=== PATIENT | male | born 1940 | race Caucasian/White ===

== ENCOUNTER → 2018-11-27 08:41 | Outpatient (CLI) | payer MEDICARE, OTHER, SELFPAY ==
--- NOTE | 2018-11-27 | DI.MRI.S_ITS ---
PROCEDURE: MR LUMBAR SPINE WO CON INDICATIONS: LOW BACK PAIN/SPINAL STENOSIS TECHNIQUE: Noncontrast sagittal T1 spin echo and T2 fast echo, sagittal STIR, axial T1 and T2 fast spin echo through the lumbar spine. In cases with scoliosis, additional coronal T2 fast spin echo may be performed. COMPARISON: None. FINDINGS: Image quality: Excellent. Alignment and Curvature: No plain films are available for comparison, for numbering purposes. Thus, for the purposes of this examination, 5 lumbar type vertebral bodies will be presumed, as denoted on the montage panel. This should be confirmed and correlated with plain films, prior to any lumbar spinal intervention. There is mild, grade 1 anterolisthesis of L4 on L5 and L5 on S1. Bone Marrow: Marrow is of normal overall signal. No acute vertebral body compression fractures. Mild reactive signal within the endplates adjacent to the L2-L3, L3-L4, L4-L5, and L5-S1 intervertebral discs. Spinal Cord: Conus medullaris terminates at the L1-L2 disc space level. Visualized cord demonstrates normal signal and size. Paraspinous Soft Tissues: No paravertebral masses. T11-T12: Moderate disc height loss and desiccation. Mild diffuse disc bulge. Mild canal stenosis. No foraminal stenosis. T12-L1: Mild disc height loss and desiccation. Mild diffuse disc bulge with superimposed right paracentral protrusion. Mild bilateral facet hypertrophy. Mild canal stenosis. No foraminal stenosis. L1-L2: Moderate disc desiccation. Mild disc height loss. Mild diffuse disc bulge. Mild bilateral facet and ligamentum flavum hypertrophy. Mild canal stenosis. No foraminal stenosis. L2-L3: Mild diffuse disc bulge with superimposed left posterolateral protrusion. Mild facet and ligamentum flavum hypertrophy. Mild epidural lipomatosis. Mild canal stenosis. Mild left foraminal stenosis. No right foraminal stenosis. L3-L4: Moderate disc height loss and desiccation. Mild diffuse disc bulge with superimposed small broad-based left posterolateral protrusion. Mild facet and ligamentum flavum hypertrophy. Mild canal stenosis. Mild foraminal stenosis bilaterally. L4-L5: Moderate disc height loss and desiccation. Mild diffuse disc bulge. Moderate facet hypertrophy. Mild ligamentum flavum hypertrophy. Moderate canal stenosis. Mild foraminal stenosis bilaterally. L5-S1: Moderate disc height loss and desiccation. Mild diffuse disc bulge. Mild facet hypertrophy bilaterally. Mild canal stenosis. Moderate subarticular foraminal stenosis bilaterally. IMPRESSION: 1. Multilevel degenerative disc and facet disease, as well as ligamentum flavum hypertrophy and epidural lipomatosis. 2. 5 lumbar type vertebral bodies were presumed for the current report. Plain films of the lumbar spine are recommended for confirmation, prior to any lumbar spinal intervention. 3. Multilevel canal stenoses, worst at L4-L5 where there is moderate canal stenosis present. 4. Multilevel foraminal stenoses, worst at L5-S1 bilaterally where there are moderate subarticular foraminal stenoses present. Dictated by: Saurabh Camargo M.D. on 11/27/2018 at 9:36 Approved by: Saurabh Camargo M.D. on 11/27/2018 at 9:44
== END ==
PROVIDERS: PCP Internal Medicine; Visit Provider Internal Medicine
DX: M51.36 Other intervertebral disc degeneration, lumbar region (principal); M51.37 Other intervertebral disc degeneration, lumbosacral region; M48.061 Spinal stenosis, lumbar region without neurogenic claudication; M48.07 Spinal stenosis, lumbosacral region; M54.5 Low back pain; E88.2 Lipomatosis, not elsewhere classified
CPT/HCPCS: 72148

== ENCOUNTER 2019-02-09 14:08 | Inpatient (IN) | payer MEDICARE, OTHER, SELFPAY ==
[2019-02-09] VITALS (10 sets, daily range): BP systolic 96–152; BP diastolic 72–94; PULSE 67–80; RESP 14–18; TEMP 36.2–37; O2SAT 93–98; BMI 32.4; BMI 30.9
--- NOTE | 2019-02-09 | DI.ECHO.S_ITS ---
[facility]---------+ [facility] +---------+ : : [address] : : : : [id number] : : : : Phone: [phone] Echocardiogram Report + + :Name: GONZALO BRAUN Study Date: 02/10/2019 Height: 67 in : :[facility] Weight: 207 lb : : Gender: Male BSA: 2.1 m2 : :: 1940 Age: 78 yrs BP: 136/93 mmHg: :Reason For Study: CHF : :Ordering Physician: Dr. Youssef : :Tianna Performed By: Susanne Pisano : :Referring: MONALISA CALDERÓN : + + Interpretation Summary The study quality was technically difficult. Left ventricular systolic function is severely reduced. The ejection fraction is estimated to be 25-30%. There is moderate to severe global hypokinesis of the left ventricle. There is severe hypokinesis of the basal to mid inferior wall. Diastolic parameters suggest a pseudonormalization pattern, consistent with probable elevated filling pressures. The right ventricle is mildly dilated. The right ventricular systolic pressure is estimated to be at least 54 mmHg based on an estimated right atrial pressure of 8 mm Hg. The left atrium is severely dilated. There is mild to moderate mitral regurgitation. -Overall this echo shows a moderately reduced LV systolic function with increased filling pressures. There is global hypokinesis. The wall motion is worse in the inferior wall, indicating coronary artery disease. -No prior echo for comparison. Procedure: A two-dimensional transthoracic echocardiogram with color flow and Doppler was performed. There is no prior echocardiogram noted for this patient. The study quality was technically difficult. The patient was in normal sinus rhythm during the exam. The patient had frequent PVCs during the exam. Left Ventricle: The left ventricle is mildly dilated. There is normal left ventricular wall thickness. Left ventricular systolic function is severely reduced. The ejection fraction is estimated to be 25-30%. There is moderate to severe global hypokinesis of the left ventricle. There is severe hypokinesis of the basal to mid inferior wall. Diastolic parameters suggest a pseudonormalization pattern, consistent with probable elevated filling pressures. Right Ventricle: The right ventricle is mildly dilated. The right ventricular systolic function is normal. Atria: The left atrium is severely dilated. The right atrium is mild to moderately dilated. There is no Doppler evidence for an interatrial shunt. Mitral Valve: The mitral valve leaflets appear mildly thickened, but open well. There is mild mitral annular calcification. There is mild to moderate mitral regurgitation. Aortic Valve: The aortic valve is trileaflet. There is mild aortic valve sclerosis. The aortic valve opens well. There is no aortic valve stenosis. There is trace aortic regurgitation. Tricuspid Valve: The tricuspid valve is normal. There is mild tricuspid regurgitation. The right ventricular systolic pressure is estimated to be at least 54 mmHg based on an estimated right atrial pressure of 8 mm Hg. Pulmonic Valve: The pulmonic valve is not well visualized. There is trace pulmonic regurgitation. Great Vessels: The aortic root is normal size. The ascending aorta is normal in size. The aortic arch could not be visualized. The pulmonary is not well visualized. The IVC is dilated (diameter is greater than 2.1 cm) yet it collapses greater than 50% with a sniff. This suggests a right atrial pressure of 8 mm Hg. Pericardium/ Pleura There is no pericardial effusion. There is a trivial right-sided pleural effusion. MMode/2D Measurements & Calculations LVIDd: 6.0 cm LVOT diam: 2.3 cm LVIDs: 5.7 cm Ao root diam: 3.4 cm FS: 4.6 % asc Aorta Diam: 3.1 cm EPSS: 2.0 cm IVSd: 0.66 cm LVPWd: 0.70 cm LV ziegler. diameter/BSA (cm/m^2): 2.9 LV sys. diameter/BSA (cm/m^2): 2.8 LA A2 area: 28.0 cm2 RA long axis: 5.0 cm LA A4 area: 27.0 cm2 RA area: 18.3 cm2 LA length (vol): 6.4 cm RA vol: 56.7 ml LA vol: 100.4 ml RA : 27.6 ml/m2 LA vol index: 48.9 ml/m2 IVC diam: 2.2 cm RVD1 (basal): 5.4 cm RVD2 (mid): 4.3 cm TAPSE: 2.7 cm Doppler Measurements & Calculations Ao V2 max: 118.4 cm/sec LVOT Max Dov: 84.6 cm/sec Ao V2 mean: 79.2 cm/sec LV V1 max P.9 mmHg Ao max P.6 mmHg LV V1 VTI: 14.8 cm Ao mean P.9 mmHg PAUL(I,D): 2.9 cm2 Ao V2 VTI: 21.5 cm PAUL(V,D): 3.0 cm2 sev ratio: 0.69 PAUL indexed to BSA (cm^2/m^2): 1.4 MV E max dov: 72.6 cm/sec TR max dov: 337.9 cm/sec MV A max dov: 53.6 cm/sec TR max P.7 mmHg MV E/A: 1.4 PA V2 max: 53.8 cm/sec Med Peak E' Dov: 2.3 cm/sec PA V2 mean: 33.9 cm/sec E/E' med: 31.3 PA mean P.54 mmHg Lat Peak E' Dov: 6.0 cm/sec PA Accel Time: 0.10 sec E/E' lat: 12.1 E/e' average: 21.7 MV dec time: 0.24 sec SV(LVOT): 61.5 ml Electronically signed by: Van Lemus M.D. on Reading Physician:02/10/2019 11:02 AM
[2019-02-09] MEDS: methylPREDNISolone 125 MG/2 ML VIAL IV (14:48)
[2019-02-09] MEDS: ALBUTEROL/IPRATROPIUM 3 ML AMPUL INH (14:52)
[2019-02-09 14:53] LABS: Add Manual Diff / Slide Review NO; Basophils Absolute Auto 0 /uL (0-100); Basophils Percent Auto 0.5 % (0-2); Eosinophils Absolute Auto 200 /uL (0-450); Eosinophils Percent Auto 2.2 % (2-4); Hematocrit 42.9 % (41-53); Hemoglobin 14.2 g/dL (13.5-17.5); Lymphocytes Absolute Auto 1600 /uL (1100-4500); Lymphocytes Percent Auto 19.2 % (25-40); Mean Corpuscular HGB Conc 33.2 % (30-36); Mean Corpuscular Hemoglobin 30.7 PG (26-34); Mean Corpuscular Volume 92.4 fL (80-100); Monocytes Absolute Auto 900 /uL (0-900); Monocytes Percent Auto 10.4 % (3-14); Neutrophils Absolute Auto 5600 /uL (1500-7000); Neutrophils Percent Auto 67.7 % (50-75); Platelet Count 160 X10^3/uL (150-400); Red Blood Cell Count 4.64 X10^6/uL (4.5-5.9); Red Cell Distribution Width 15.1 % (11.6-14.8); White Blood Cell Count 8.3 X10^3/uL (4.5-11.0)
[2019-02-09 15:04] LABS: B Type Natriuretic Peptide 1250 (<100)
[2019-02-09 15:08] LABS: Blood Urea Nitrogen 22 mg/dL (9-20); Calcium 9.1 mg/dL (8.4-10.2); Carbon Dioxide 24 mmol/L (22-32); Chloride 103 mmol/L (98-107); Creatine Kinase 49 U/L (55-170); Estimated Glomerular Filt Rate > 60.0 mL/min (>60); Glucose 105 mg/dL (80-110); Magnesium 1.6 mg/dL (1.6-2.3); Potassium 4.7 mmol/L (3.4-5.1); Sodium 138 mmol/L (137-145)
[2019-02-09 15:10] LABS: HEMOLYSIS 64 (0-50)
[2019-02-09 15:19] LABS: Troponin I 0.022 ng/mL (0.01-0.034)
[2019-02-09 15:21] LABS: Procalcitonin < 0.05 ng/mL (<0.5)
[2019-02-09] MEDS: FUROSEMIDE 40 MG/4 ML VIAL IV ×2 (15:31→21:41)
--- NOTE | 2019-02-09 15:35 | DI.RAD.S_ITS ---
PROCEDURE: XR CHEST 1V INDICATIONS: short of breath TECHNIQUE: One view of the chest was acquired. COMPARISON: None. FINDINGS: Surgical changes and devices: None. Lungs and pleura: Lungs are clear. No pleural effusions or pneumothorax. Mediastinum: Mediastinal contours appear normal. Heart size is enlarged. Bones and chest wall: No suspicious bony lesions. Overlying soft tissues appear unremarkable. IMPRESSION: No acute process. Dictated by: Saurabh Camargo M.D. on 02/09/2019 at 15:48 Approved by: Saurabh Camargo M.D. on 02/09/2019 at 15:48
--- NOTE | 2019-02-09 15:51 | ED.SOB ---
HPI - SOB/Dyspnea General Chief Complaint: Shortness of Breath/Dyspnea Stated Complaint: SOB Time Seen by Provider: 02/09/19 14:59 Source: patient Mode of arrival: ambulatory Limitations: no limitations History of Present Illness Patient is a gab 78-year-old male who presents with increasing shortness of breath with exertion ongoing for a month but worse over the last 3 days. He states that he has has had swelling in his legs he has noticed it mostly in his testicles. In fact he saw his PCP who says that his right testicle looked infected and on Cipro. He denies any chest pain no heart palpitations. He has no known history of COPD or congestive heart failure. He has not had any fever or productive cough. MD Complaint: shortness of breath Context: occurred during exertion Severity: moderate Consistency/Duration: intermittent Relieving factors: rest Treatment prior to arrival: none Related Data Home Medications Medication Instructions Recorded Confirmed B-complex with vitamin C [Super B 1 tab PO DAILY 02/09/19 02/09/19 Complex-Vitamin C] albuterol sulfate [Ventolin HFA] 2 puff INHALATION PRN PRN 02/09/19 02/09/19 aspirin 325 mg PO DAILY 02/09/19 02/09/19 carvedilol 1 tab PO BID 02/09/19 02/09/19 ciprofloxacin HCl [Cipro] 500 mg PO Q12H 02/09/19 02/09/19 finasteride 1 tab PO DAILY 02/09/19 02/09/19 furosemide 1 tab PO DAILY 02/09/19 02/09/19 glucosamine-chondroitin 2 tab PO DAILY 02/09/19 02/09/19 levothyroxine 88 mcg PO DAILY 02/09/19 02/09/19 lisinopril-hydrochlorothiazide 1 tab PO DAILY 02/09/19 02/09/19 metformin 1 tab PO BID 02/09/19 02/09/19 pravastatin 1 tab PO DAILY 02/09/19 02/09/19 tamsulosin 0.4 mg PO QAM 02/09/19 02/09/19 Allergies Allergy/AdvReac Type Severity Reaction Status Date / Time cephalexin [From Keflex] Allergy Verified 02/09/19 14:20 codeine Allergy Verified 02/09/19 14:21 Penicillins Allergy Verified 02/09/19 14:21 Sulfa (Sulfonamide Allergy Verified 02/09/19 14:21 Antibiotics) Review of Systems Review of Systems ROS Unobtainable: All systems reviewed & are unremarkable except as noted in HPI and below Eyes Denies change in vision, Denies eye discharge, Denies irritation and Denies loss of vision ENT Ears, Nose, Mouth, and Throat: Denies change in voice, Denies neck pain and Denies sore throat Cardiovascular Denies chest pain, Reports pedal edema, Reports edema, Denies irregular heart rhythm, Denies lightheadedness, Denies palpitations, Reports dyspnea on exertion and Denies orthopnea Respiratory Reports as per HPI and Reports dyspnea on exertion Gastrointestinal Gastrointestinal: Denies abdominal pain, Denies change in bowel habits, Denies diarrhea, Denies nausea and Denies vomiting Genitourinary Reports scrotal swelling Musculoskeletal Denies neck pain Integumentary/Breasts Denies pruritus, Denies erythema, Denies rash and Denies wounds Neurologic Denies loss of vision Endocrine Denies palpitations [facility] Medical History Anxiety (Acute) Benign prostate hyperplasia (Acute) Diabetes mellitus (Acute) HTN (hypertension) (Acute) Hypothyroidism (Acute) Lipidemia (Acute) Surgical History H/O colectomy (Acute) Hx of hand surgery (Acute) Social History household members: spouse Smoking Status: Former smoker alcohol intake: current Social History household members: spouse Smoking Status: Former smoker alcohol intake: current Exam Initial Vital Signs Initial Vital Signs: Vital Signs Temperature 98.6 F 02/09/19 14:14 Pulse Rate 72 02/09/19 14:14 Respiratory Rate 18 02/09/19 14:14 Blood Pressure 129/72 02/09/19 14:14 Pulse Oximetry 96 02/09/19 14:14 GENERAL: Alert pleasant elderly male able to speak in full sentence and in no acute distress. HEENT: Head atraumatic,EOMI, pupils reactive, neck is supple no JVD CARDIOVASCULAR: Regular rate and rhythm without murmurs, rubs or gallops. RESPIRATORY: Breath sounds equal bilaterally, no wheezes rales or rhonchi. ABDOMEN: Soft, nontender. Normoactive bowel sounds all 4 quadrants. No guarding or rebound. EXTREMITIES: Normal range of motion, no clubbing.+1 pitting edema. Neurovascularly intact NEUROLOGICAL: Alert and oriented x4.Normal gait and speech. Cranial nerves II through XII grossly intact. SKIN: Warm, dry, no laceration, no petechiae, no rashes or lesions. Course Orders Ordered: ED Orders 02/09/19 13:35 Hepatic (Liver) Panel Stat 02/09/19 14:11 EKG-12 Lead Stat 02/09/19 14:35 B Type Natriuretic Peptide Stat Basic Metabolic Panel Stat Complete Blood Count AUTO DIFF Stat Magnesium Stat Procalcitonin Stat Troponin & CK Cardiac Panel Stat 02/09/19 15:35 XR chest 1V Stat 02/09/19 18:02 Consult to Pastoral Services Routine 02/10/19 05:00 Basic Metabolic Panel Routine D Dimer Routine Hemoglobin A1C% w Est Avg Glu Routine Lipid Panel Routine TSH w/ Reflex to FT4 Routine Acetaminophen (Tylenol) 650 mg PO Q6HR PRN PRN Reason: As Needed for Fever/Mild Pain Aspirin (Aspirin) 325 mg PO DAILY [facility] Carvedilol (Coreg) 25 mg PO BID [facility] Enoxaparin Sodium (Lovenox) 40 mg SUBCUT DAILY [facility] Finasteride (Proscar) 5 mg PO DAILY [facility] Furosemide (Lasix) 40 mg IV BID [facility] Hydrochlorothiazide (Hydrochlorothiazide) 12.5 mg PO DAILY [facility] Levothyroxine Sodium (Synthroid) 88 mcg PO 0600 [facility] Lisinopril (Zestril) 20 mg PO DAILY [facility] Magnesium Hydroxide (Milk Of Magnesia) 30 ml PO DAILY PRN PRN Reason: Constipation Metformin HCl (Glucophage) 500 mg PO BID [facility] Pravastatin Sodium (Pravachol) 40 mg PO DAILY [facility] Discontinued Medications Albuterol/Ipratropium (Duoneb) 3 ml INH NOW ONE Stop: 02/09/19 14:37 Last Admin: 02/09/19 14:52 Dose: 3 ml Furosemide (Lasix) 40 mg IV NOW ONE Stop: 02/09/19 15:23 Last Admin: 02/09/19 15:31 Dose: 40 mg Methylprednisolone (Solu-Medrol 125 Mg Vial) 125 mg IV NOW ONE Stop: 02/09/19 14:37 Last Admin: 02/09/19 14:48 Dose: 125 mg Vital Signs - 8 hr 02/09/19 14:14 02/09/19 15:06 02/09/19 15:13 Temperature 98.6 F 98.3 F Pulse Rate 72 67 71 Respiratory Rate 18 16 15 Blood Pressure 129/72 Blood Pressure [Right Arm] 127/81 Pulse Oximetry 96 97 98 02/09/19 16:00 02/09/19 17:25 02/09/19 17:50 Temperature Pulse Rate 71 75 Respiratory Rate 14 15 Blood Pressure 145/78 H Blood Pressure [Right Arm] 96/73 Pulse Oximetry 95 93 97 02/09/19 18:13 Temperature 97.4 F L Pulse Rate 75 Respiratory Rate 18 Blood Pressure 139/88 Blood Pressure [Right Arm] Pulse Oximetry 96 MDM - SOB/Dyspnea Lab Data Attestation: I reviewed the patient's lab results. Result diagrams: 02/09/19 14:35 02/09/19 14:35 Lab Results 02/09/19 02/09/19 02/09/19 Range/Units 13:35 14:35 14:35 WBC 8.3 (4.5-11.0) X10^3/uL RBC 4.64 (4.5-5.9) X10^6/uL Hgb 14.2 (13.5-17.5) g/dL Hct 42.9 (41-53) % MCV 92.4 (80-100) fL MCH 30.7 (26-34) PG MCHC 33.2 (30-36) % RDW 15.1 H (11.6-14.8) % Plt Count 160 (150-400) X10^3/uL Neut % (Auto) 67.7 (50-75) % Lymph % (Auto) 19.2 L (25-40) % Elliott % (Auto) 10.4 (3-14) % Eos % (Auto) 2.2 (2-4) % Baso % (Auto) 0.5 (0-2) % Neut # (Auto) 5600 (0675-8900) /uL Lymph # (Auto) 1600 (8464-1660) /uL Elliott # (Auto) 900 (0-900) /uL Eos # (Auto) 200 (0-450) /uL Baso # (Auto) 0 (0-100) /uL Sodium 138 (137-145) mmol/L Potassium 4.7 (3.4-5.1) mmol/L Chloride 103 (98-107) mmol/L Carbon Dioxide 24 (22-32) mmol/L BUN 22 H (9-20) mg/dL Creatinine 1.10 (0.66-1.25) mg/dL Estimated GFR > 60.0 (>60) mL/min BUN/Creatinine Ratio 20.0 (6-22) Glucose 105 (80-110) mg/dL Calcium 9.1 (8.4-10.2) mg/dL Magnesium 1.6 (1.6-2.3) mg/dL Total Bilirubin 1.2 (0.2-1.3) mg/dL Conjugated Bilirubin 0.0 (0.0-0.3) md/dL Unconjugated Bilirubin 0.8 (0.0-1.1) mg/dL AST 45 (17-59) IU/L ALT 28 (21-72) IU/L Alkaline Phosphatase 73 (38-126) U/L Total Creatine Kinase 49 L (55-170) U/L CK-MB (CK-2) TNP CK-MB (CK-2) Rel Index TNP Troponin I 0.022 (0.01-0.034) ng/mL B-Natriuretic Peptide 1250 H (<100) Total Protein 7.0 (6.3-8.2) g/dL Albumin 4.3 (3.5-5.0) g/dL Globulin 2.7 (1.7-4.1) g/dL Albumin/Globulin Ratio 1.6 (1.0-2.8) Procalcitonin (<0.5) ng/mL 02/09/19 Range/Units 14:35 WBC (4.5-11.0) X10^3/uL RBC (4.5-5.9) X10^6/uL Hgb (13.5-17.5) g/dL Hct (41-53) % MCV (80-100) fL MCH (26-34) PG MCHC (30-36) % RDW (11.6-14.8) % Plt Count (150-400) X10^3/uL Neut % (Auto) (50-75) % Lymph % (Auto) (25-40) % Elliott % (Auto) (3-14) % Eos % (Auto) (2-4) % Baso % (Auto) (0-2) % Neut # (Auto) (7604-8228) /uL Lymph # (Auto) (3383-0236) /uL Elliott # (Auto) (0-900) /uL Eos # (Auto) (0-450) /uL Baso # (Auto) (0-100) /uL Sodium (137-145) mmol/L Potassium (3.4-5.1) mmol/L Chloride (98-107) mmol/L Carbon Dioxide (22-32) mmol/L BUN (9-20) mg/dL Creatinine (0.66-1.25) mg/dL Estimated GFR (>60) mL/min BUN/Creatinine Ratio (6-22) Glucose (80-110) mg/dL Calcium (8.4-10.2) mg/dL Magnesium (1.6-2.3) mg/dL Total Bilirubin (0.2-1.3) mg/dL Conjugated Bilirubin (0.0-0.3) md/dL Unconjugated Bilirubin (0.0-1.1) mg/dL AST (17-59) IU/L ALT (21-72) IU/L Alkaline Phosphatase (38-126) U/L Total Creatine Kinase (55-170) U/L CK-MB (CK-2) CK-MB (CK-2) Rel Index Troponin I (0.01-0.034) ng/mL B-Natriuretic Peptide (<100) Total Protein (6.3-8.2) g/dL Albumin (3.5-5.0) g/dL Globulin (1.7-4.1) g/dL Albumin/Globulin Ratio (1.0-2.8) Procalcitonin < 0.05 (<0.5) ng/mL Urine Dip Bedside Urine Glucose Negative Bedside Urine Bilirubin - Negative Bedside Urine Ketone - Negative Urine Specific Thurmond 1.015 Bedside Urine Occult Blood - Negative Bedside Urine pH 5.0 Bedside Urine Protein - Negative Bedside Urine Urobilinogen - Negative Bedside Urine Nitrite - Negative Bedside Urine Leukocytes - Negative Esterase Imaging Data Chest x-ray: Radiologist's impression: PROCEDURE: XR CHEST 1V INDICATIONS: short of breath TECHNIQUE: One view of the chest was acquired. COMPARISON: None. FINDINGS: Surgical changes and devices: None. Lungs and pleura: Lungs are clear. No pleural effusions or pneumothorax. Mediastinum: Mediastinal contours appear normal. Heart size is enlarged. Bones and chest wall: No suspicious bony lesions. Overlying soft tissues appear unremarkable. IMPRESSION: No acute process. Dictated by: Saurabh Camargo M.D. on 02/09/2019 at 15:48 ECG Data Attestation: I personally reviewed and interpreted this ECG as follows: Prior ECG tracings: not available for review Interpretation: Sinus rhythm rate 72 right bundle branch block no priors to compare ST depression in V3 no ST elevation MDM Narrative Medical decision making narrative: Patient has new onset CHF likely. He has swelling in his legs symptoms consistent with CHF. BNP elevated at 1200. Dr. wynn accepts for in patient Discharge Plan Departure Patient Disposition: Admitted As Inpatient Clinical Impression: Congestive heart failure Qualifiers: Heart failure chronicity: unspecified Discharge Date/Time: 02/09/19 17:46 Interventions: ED Discharge Assessment Last Done: 02/09/19 17:25 Admit Date/Time: 02/09/19 17:14 Admit Provider: Mikael Wynn
[2019-02-09 16:53] LABS: Alanine Aminotransferase 28 IU/L (21-72); Albumin 4.3 g/dL (3.5-5.0); Albumin Globulin Ratio 1.6 (1.0-2.8); Alkaline Phosphatase 73 U/L (38-126); Aspartate Aminotransferase 45 IU/L (17-59); Bilirubin Total 1.2 mg/dL (0.2-1.3); Bilirubin Unconjugated 0.8 mg/dL (0.0-1.1); Globulin 2.7 g/dL (1.7-4.1)
[2019-02-09 16:57] LABS: HEMOLYSIS 64 (0-50)
--- NOTE | 2019-02-09 17:23 | PM.HP.1 ---
History of Present Illness Date Patient Seen: 02/09/19 Time Patient Seen: 16:30 Chief complaint: SOB Narrative: Patient is a 78-year-old male, established with Dr. Yosef Mix MD with history of type 2 diabetes, hypertension, hyperlipidemia, hypothyroidism presented to ED with complaints of progressive shortness of breath. Patient started experiencing dyspnea on exertion about a month ago where he would get out of breath with walking or climbing up a flight of stairs. Symptoms have been progressive over the past couple of weeks to the point where he gets out of breath just combing his hair and has difficulty completing a sentence. He sleeps propped up on pillows but that is not something recent. He denies paroxysmal nocturnal dyspnea. He denies fevers or coughs. Also he has not noticed any chest discomfort. He has noticed some swelling in his scrotum and lower extremities which is new over the past month. He saw a provider in clinic a couple of days ago and given prescription for ciprofloxacin and furosemide 20 mg daily. He states the ciprofloxacin was for the scrotal swelling although he had not noticed any dysuria or testicular pain. He denies prior history of coronary artery disease or NC. ED evaluation included initial normal vitals with temperature 98.6?, BP 129/72, pulse 72, respirations 18, O2 sat 96% room air. However his BMP was elevated at 1250, cardiac enzymes normal, creatinine 1.10, glucose 105. Chest x-ray without abnormality. EKG showed sinus rhythm with right bundle branch block and evidence of old inferior NC. Patient does have hip arthritis and anticipating hip replacement with Dr. Evon Lima at end of March or early April. Family history: Mother had CHF and diabetes. Social history: , former smoker, rare alcohol use Patient History Medical History (Updated 02/09/19 @ 16:35 by Hayde Nguyen DO) Benign prostate hyperplasia (Acute) Diabetes mellitus (Acute) HTN (hypertension) (Acute) Hypothyroidism (Acute) Lipidemia (Acute) Surgical History (Updated 02/09/19 @ 14:24 by Brown Patel RN) H/O colectomy (Acute) Social History Smoking Status: Former smoker Family & Social History Safety & Behavioral: Feels Safe in Current Yes Environment Been Physically Hurt or No Threatened By a Person Tobacco & Substance use: Smoking Status Former smoker alcohol intake frequency a few times a month Substance Use Type does not use Meds Home Medications Medication Instructions Recorded Confirmed Type B-complex with vitamin C [Super B 1 tab PO DAILY 02/09/19 02/09/19 History Complex-Vitamin C] Cipro 500 mg PO BID 02/09/19 02/09/19 History albuterol sulfate [Ventolin HFA] 2 puff INHALATION PRN PRN 02/09/19 02/09/19 History aspirin 325 mg PO DAILY 02/09/19 02/09/19 History carvedilol 1 tab PO BID 02/09/19 02/09/19 History finasteride 1 tab PO DAILY 02/09/19 02/09/19 History furosemide 1 tab PO DAILY 02/09/19 02/09/19 History glucosamine-chondroitin 2 tab PO DAILY 02/09/19 02/09/19 History levothyroxine 88 mcg PO DAILY 02/09/19 02/09/19 History lisinopril-hydrochlorothiazide 1 tab PO DAILY 02/09/19 02/09/19 History metformin 1 tab PO BID 02/09/19 02/09/19 History pravastatin 1 tab PO DAILY 02/09/19 02/09/19 History Allergies Allergy/AdvReac Type Severity Reaction Status Date / Time cephalexin [From Keflex] Allergy Verified 02/09/19 14:20 codeine Allergy Verified 02/09/19 14:21 Penicillins Allergy Verified 02/09/19 14:21 Sulfa (Sulfonamide Allergy Verified 02/09/19 14:21 Antibiotics) Review of Systems Review of Systems All systems reviewed & are unremarkable except as noted in HPI and below Exam Vital Signs (past 8 hours): - 02/09/19 14:14 02/09/19 15:06 02/09/19 15:13 Temperature 98.6 F 98.3 F Pulse Rate 72 67 71 Respiratory Rate 18 16 15 Blood Pressure 129/72 Blood Pressure [Right Arm] 127/81 Pulse Oximetry 96 97 98 02/09/19 16:00 Temperature Pulse Rate 71 Respiratory Rate 14 Blood Pressure Blood Pressure [Right Arm] 96/73 Pulse Oximetry 95 Oxygen Delivery Method Room Air Narrative Exam Narrative: GENERAL: Elderly alert and cooperative male currently in no distress after IV Lasix in ED HEAD: Atraumatic. Normocephalic. EYES: Pupils equal, round and reactive. Extraocular motions intact. No scleral icterus. No injection or drainage. OROPHARYNX: moist mucosa NECK: Trachea midline. no lymphadenopathy. Unable to visualize jugular venous pulsations CARDIOVASCULAR: Distant S1-S2, regular rate and rhythm without murmurs, gallops, or rubs. RESPIRATORY: Clear to auscultation bilaterally. GASTROINTESTINAL: Abdomen obese, nondistended, soft, non-tender. No hepato-splenomegaly, or palpable masses. Pelvic: There is slight degree of bilateral scrotal edema, no inflammation of scrotal skin EXTREMITIES: Trace pitting edema in lower legs and ankle NEUROLOGICAL: Alert, well oriented, speech is intact, normal bilateral upper and lower extremity strength SKIN: warm, dry, no rash Objective Labs Result Diagrams: 02/09/19 14:35 02/09/19 14:35 Labs: Laboratory Results - last 24 hr 02/09/19 02/09/19 02/09/19 13:35 14:35 14:35 WBC 8.3 RBC 4.64 Hgb 14.2 Hct 42.9 MCV 92.4 MCH 30.7 MCHC 33.2 RDW 15.1 H Plt Count 160 Neut % (Auto) 67.7 Lymph % (Auto) 19.2 L [place] % (Auto) 10.4 Eos % (Auto) 2.2 Baso % (Auto) 0.5 Neut # (Auto) 5600 Lymph # (Auto) 1600 [place] # (Auto) 900 Eos # (Auto) 200 Baso # (Auto) 0 Sodium 138 Potassium 4.7 Chloride 103 Carbon Dioxide 24 BUN 22 H Creatinine 1.10 Estimated GFR > 60.0 BUN/Creatinine Ratio 20.0 Glucose 105 Calcium 9.1 Magnesium 1.6 Total Bilirubin 1.2 Conjugated Bilirubin 0.0 Unconjugated Bilirubin 0.8 AST 45 ALT 28 Alkaline Phosphatase 73 Total Creatine Kinase 49 L CK-MB (CK-2) TNP CK-MB (CK-2) Rel Index TNP Troponin I 0.022 B-Natriuretic Peptide 1250 H Total Protein 7.0 Albumin 4.3 Globulin 2.7 Albumin/Globulin Ratio 1.6 Procalcitonin 02/09/19 14:35 WBC RBC Hgb Hct MCV MCH MCHC RDW Plt Count Neut % (Auto) Lymph % (Auto) [place] % (Auto) Eos % (Auto) Baso % (Auto) Neut # (Auto) Lymph # (Auto) [place] # (Auto) Eos # (Auto) Baso # (Auto) Sodium Potassium Chloride Carbon Dioxide BUN Creatinine Estimated GFR BUN/Creatinine Ratio Glucose Calcium Magnesium Total Bilirubin Conjugated Bilirubin Unconjugated Bilirubin AST ALT Alkaline Phosphatase Total Creatine Kinase CK-MB (CK-2) CK-MB (CK-2) Rel Index Troponin I B-Natriuretic Peptide Total Protein Albumin Globulin Albumin/Globulin Ratio Procalcitonin < 0.05 Assessment & Plan Assessment & Plan narrative: This is a 78-year-old male with diabetes, hypertension, hyperlipidemia, hypothyroidism, moderate obesity who presents with progress shortness of breath x1 month duration. 1. CHF, new onset -patient symptomatic with dyspnea at rest, BNP 1250, normal cardiac enzymes, failed outpatient therapy after started on oral Lasix 2 days ago -EKG concerning for old inferior NC, patient without prior history of CAD but concerned he may have had silent NC a month ago leading to current presentation -differential diagnosis includes pulmonary embolism, check D-dimer, consider rule out PE if elevated D-dimer and echo not suggestive of CHF -received 40 mg IV Lasix in ED with 1 L urine output and improvement of dyspnea -continue Lasix 40 mg IV every 12 hours -continue aspirin 325 mg daily -transthoracic echo -monitor renal function, electrolytes 2. Hypertension, chronic -BP normal range -continue home routine of carvedilol 25 mg b.i.d., lisinopril HCT 20-12.5 mg q.d. 3. Hyperlipidemia, chronic -continue pravastatin 40 mg q.d. -check a.m. lipid panel 4. Hypothyroidism, chronic -continue levothyroxine 88 mcg q.d. -check TSH 5. Type 2 diabetes, chronic -continue metformin 500 mg b.i.d. -CBG a.c. and , check hemoglobin A1c 6. BPH, chronic -continue patient on finasteride Disposition: Admitted to observation service for new diagnosis CHF.
--- NOTE | 2019-02-09 17:42 | P.HP_ITS ---
History of Present Illness Date Patient Seen: 02/09/19 Time Patient Seen: 16:30 Chief complaint: SOB Narrative: Patient is a 78-year-old male, established with Dr. Yosef Mix MD with history of type 2 diabetes, hypertension, hyperlipidemia, hypothyroidism presented to ED with complaints of progressive shortness of breath. Patient started experiencing dyspnea on exertion about a month ago where he would get out of breath with walking or climbing up a flight of stairs. Symptoms have been progressive over the past couple of weeks to the point where he gets out of breath just combing his hair and has difficulty completing a sentence. He sleeps propped up on pillows but that is not something recent. He denies paroxysmal nocturnal dyspnea. He denies fevers or coughs. Also he has not noticed any chest discomfort. He has noticed some swelling in his scrotum and lower extremities which is new over the past month. He saw a provider in clinic a couple of days ago and given prescription for ciprofloxacin and furosemide 20 mg daily. He states the ciprofloxacin was for the scrotal swelling although he had not noticed any dysuria or testicular pain. He denies prior history of coronary artery disease or DC. ED evaluation included initial normal vitals with temperature 98.6?, BP 129/72, pulse 72, respirations 18, O2 sat 96% room air. However his BMP was elevated at 1250, cardiac enzymes normal, creatinine 1.10, glucose 105. Chest x-ray without abnormality. EKG showed sinus rhythm with right bundle branch block and evidence of old inferior DC. Patient does have hip arthritis and anticipating hip replacement with Dr. Evon Lima at end of March or early April. Family history: Mother had CHF and diabetes. Social history: , former smoker, rare alcohol use Patient History Medical History (Updated 02/09/19 @ 16:35 by Hayde Nguyen DO) Benign prostate hyperplasia (Acute) Diabetes mellitus (Acute) HTN (hypertension) (Acute) Hypothyroidism (Acute) Lipidemia (Acute) Surgical History (Updated 02/09/19 @ 14:24 by Brown Patel RN) H/O colectomy (Acute) Social History Smoking Status: Former smoker Family & Social History Safety & Behavioral: Feels Safe in Current Yes Environment Been Physically Hurt or No Threatened By a Person Tobacco & Substance use: Smoking Status Former smoker alcohol intake frequency a few times a month Substance Use Type does not use Meds Home Medications Medication Instructions Recorded Confirmed Type B-complex with vitamin C [Super B 1 tab PO DAILY 02/09/19 02/09/19 History Complex-Vitamin C] Cipro 500 mg PO BID 02/09/19 02/09/19 History albuterol sulfate [Ventolin HFA] 2 puff INHALATION PRN PRN 02/09/19 02/09/19 H istory aspirin 325 mg PO DAILY 02/09/19 02/09/19 History carvedilol 1 tab PO BID 02/09/19 02/09/19 History finasteride 1 tab PO DAILY 02/09/19 02/09/19 History furosemide 1 tab PO DAILY 02/09/19 02/09/19 History glucosamine-chondroitin 2 tab PO DAILY 02/09/19 02/09/19 History levothyroxine 88 mcg PO DAILY 02/09/19 02/09/19 History lisinopril-hydrochlorothiazide 1 tab PO DAILY 02/09/19 02/09/19 History metformin 1 tab PO BID 02/09/19 02/09/19 History pravastatin 1 tab PO DAILY 02/09/19 02/09/19 History Allergies Allergy/AdvReac Type Severity Reaction Status Date / Time cephalexin [From Keflex] Allergy Verified 02/09/19 14:20 codeine Allergy Verified 02/09/19 14:21 Penicillins Allergy Verified 02/09/19 14:21 Sulfa (Sulfonamide Allergy Verified 02/09/19 14:21 Antibiotics) Review of Systems Review of Systems All systems reviewed & are unremarkable except as noted in HPI and below Exam Vital Signs (past 8 hours): - 02/09/19 14:14 02/09/19 15:06 02/09/19 15:13 Temperature 98.6 F 98.3 F Pulse Rate 72 67 71 Respiratory Rate 18 16 15 Blood Pressure 129/72 Blood Pressure [Right Arm] 127/81 Pulse Oximetry 96 97 98 02/09/19 16:00 Temperature Pulse Rate 71 Respiratory Rate 14 Blood Pressure Blood Pressure [Right Arm] 96/73 Pulse Oximetry 95 Oxygen Delivery Method Room Air Narrative Exam Narrative: GENERAL: Elderly alert and cooperative male currently in no distress after IV Lasix in ED HEAD: Atraumatic. Normocephalic. EYES: Pupils equal, round and reactive. Extraocular motions intact. No scleral icterus. No injection or drainage. OROPHARYNX: moist mucosa NECK: Trachea midline. no lymphadenopathy. Unable to visualize jugular venous pulsations CARDIOVASCULAR: Distant S1-S2, regular rate and rhythm without murmurs, g allops, or rubs. RESPIRATORY: Clear to auscultation bilaterally. GASTROINTESTINAL: Abdomen obese, nondistended, soft, non-tender. No hepato- splenomegaly, or palpable masses. Pelvic: There is slight degree of bilateral scrotal edema, no inflammation of scrotal skin EXTREMITIES: Trace pitting edema in lower legs and ankle NEUROLOGICAL: Alert, well oriented, speech is intact, normal bilateral upper and lower extremity strength SKIN: warm, dry, no rash Objective Labs Result Diagrams: 02/09/19 14:35 02/09/19 14:35 Labs: Laboratory Results - last 24 hr 02/09/19 02/09/19 02/09/19 13:35 14:35 14:35 WBC 8.3 RBC 4.64 Hgb 14.2 Hct 42.9 MCV 92.4 MCH 30.7 MCHC 33.2 RDW 15.1 H Plt Count 160 Neut % (Auto) 67.7 Lymph % (Auto) 19.2 L [place] % (Auto) 10.4 Eos % (Auto) 2.2 Baso % (Auto) 0.5 Neut # (Auto) 5600 Lymph # (Auto) 1600 [place] # (Auto) 900 Eos # (Auto) 200 Baso # (Auto) 0 Sodium 138 Potassium 4.7 Chloride 103 Carbon Dioxide 24 BUN 22 H Creatinine 1.10 Estimated GFR > 60.0 BUN/Creatinine Ratio 20.0 Glucose 105 Calcium 9.1 Magnesium 1.6 Total Bilirubin 1.2 Conjugated Bilirubin 0.0 Unconjugated Bilirubin 0.8 AST 45 ALT 28 Alkaline Phosphatase 73 Total Creatine Kinase 49 L CK-MB (CK-2) TNP CK-MB (CK-2) Rel Index TNP Troponin I 0.022 B-Natriuretic Peptide 1250 H Total Protein 7.0 Albumin 4.3 Globulin 2.7 Albumin/Globulin Ratio 1.6 Procalcitonin 02/09/19 14:35 WBC RBC Hgb Hct MCV MCH MCHC RDW Plt Count Neut % (Auto) Lymph % (Auto) [place] % (Auto) Eos % (Auto) Baso % (Auto) Neut # (Auto) Lymph # (Auto) [place] # (Auto) Eos # (Auto) Baso # (Auto) Sodium Potassium Chloride Carbon Dioxide BUN Creatinine Estimated GFR BUN/Creatinine Ratio Glucose Calcium Magnesium Total Bilirubin Conjugated Bilirubin Unconjugated Bilirubin AST ALT Alkaline Phosphatase Total Creatine Kinase CK-MB (CK-2) CK-MB (CK-2) Rel Index Troponin I B-Natriuretic Peptide Total Protein Albumin Globulin Albumin/Globulin Ratio Procalcitonin < 0.05 Assessment & Plan Assessment & Plan narrative: This is a 78-year-old male with diabetes, hypertension, hyperlipidemia, hypothyroidism, moderate obesity who presents with progress shortness of breath x1 month duration. 1. CHF, new onset -patient symptomatic with dyspnea at rest, BNP 1250, normal cardiac enzymes, joaquin led outpatient therapy after started on oral Lasix 2 days ago -EKG concerning for old inferior DC, patient without prior history of CAD but concerned he may have had silent DC a month ago leading to current presentation -differential diagnosis includes pulmonary embolism, check D-dimer, consider rul e out PE if elevated D-dimer and echo not suggestive of CHF -received 40 mg IV Lasix in ED with 1 L urine output and improvement of dyspnea -continue Lasix 40 mg IV every 12 hours -continue aspirin 325 mg daily -transthoracic echo -monitor renal function, electrolytes 2. Hypertension, chronic -BP normal range -continue home routine of carvedilol 25 mg b.i.d., lisinopril HCT 20-12.5 mg q.d. 3. Hyperlipidemia, chronic -continue pravastatin 40 mg q.d. -check a.m. lipid panel 4. Hypothyroidism, chronic -continue levothyroxine 88 mcg q.d. -check TSH 5. Type 2 diabetes, chronic -continue metformin 500 mg b.i.d. -CBG a.c. and , check hemoglobin A1c 6. BPH, chronic -continue patient on finasteride Disposition: Admitted to observation service for new diagnosis CHF.
--- NOTE | 2019-02-09 18:35 | PC.NURSE ---
Pt admitted to acute care from ER. Transferred via wheelchair. Ambulated with cane to bed. Gait steady. Reports history of arthritis in hips/knees as reason for using cane, has not fallen. A/O. Denies pain. Shortness of breath with exertion/after walking back to bed from bathroom. RA 97%. Spouse at bedside for admission. Meds reconciled and sent home. Moderate fall risk and pt verbally confirms understanding to use call light for assistance out of bed. Bed alarm also set. Oriented to room/call light use.
[2019-02-10] VITALS (11 sets, daily range): BP systolic 95–136; BP diastolic 54–93; PULSE 68–83; RESP 16–18; TEMP 36.2–36.4; O2SAT 95–98
[2019-02-10 05:38] LABS: D Dimer 216 ng/mL (<230)
[2019-02-10 05:45] LABS: Blood Urea Nitrogen 25 mg/dL (9-20); Calcium 9.1 mg/dL (8.4-10.2); Carbon Dioxide 30 mmol/L (22-32); Chloride 98 mmol/L (98-107); Estimated Glomerular Filt Rate > 60.0 mL/min (>60); Glucose 220 mg/dL (80-110); HEMOLYSIS < 15 (0-50); Potassium 3.7 mmol/L (3.4-5.1); Sodium 138 mmol/L (137-145)
[2019-02-10 06:09] LABS: Cholesterol 124 mg/dL (140-199); HDL Cholesterol 49 mg/dL (40-60); LDL Cholesterol Calculated 63 mg/dL (<100); Triglycerides 62 mg/dL (35-150)
[2019-02-10 06:10] LABS: TSH w/ Reflex to FT4 0.59 uIU/mL (0.47-4.68)
--- NOTE | 2019-02-10 07:55 | PM.PN.1 ---
Subjective Date Patient Seen: 02/10/19 Interval history: Riccardo Persaud is a 78-year-old male with a past medical history significant for hypertension, hyperlipidemia, diabetes mellitus type 2, non-insulin using, hypothyroidism, and moderate obesity who presented significant progressive shortness of breath over the last month. The patient is resting in bedside chair comfortably. He reports shortness of breath has improved. He endorses mild scratchy throat and his believes he may be more flush than usual. Patient is on hydrochlorothiazide and despite of past sulfa allergy. Plan to discontinue furosemide after evening dose and start Bumex which has less cross reactivity with self allergy. Discussed his echocardiogram in detail and informed him that it is likely he has had an ischemic insult sometime in the last month when his symptoms started. The patient reports several years ago he had chest pain in which he thought was indigestion he took Tums/antacid and hoped it went away. He has had no return of symptoms. He reports his shortness of breath started 1 month ago and has been gradual without any other symptoms. He denies headache, chest pain or pressure, shoulder pain or pressure, numbness or tingling of upper extremities or jaw, abdominal pain, nausea, vomiting, fever, chills, dysuria, diarrhea or constipation. He is voiding and eliminating without difficulty. He is up ambulating minimally with assistance. Exam Vital Signs (past 8 hours): - 02/10/19 03:05 Temperature 97.3 F L Pulse Rate 83 Respiratory Rate 16 Blood Pressure 136/93 H Pulse Oximetry 95 Oxygen Delivery Method Room Air Narrative Exam Narrative: General: Elderly male lying in bedside chair and in no acute distress, well-developed, well-nourished, appropriately interactive. HEENT: Normocephalic, atraumatic. External ears without defect. Pupils equal, round, and reactive to light. Anicteric sclerae, moist conjunctivae, and no lid lag. Oropharynx free of erythema and cobble stoning with moist mucosa. Neck: Supple with full range of motion. Mild JVD. No lymphadenopathy or thyromegaly. Cardiovascular: Regular rate and rhythm with grade +2/6 holosystolic murmur. No rubs or gallops appreciated. Pulmonary: Clear to auscultation bilaterally without crackles, wheezes, or rhonchi. Normal respiratory effort with no use of accessory muscles. Abdomen: Soft, bowel sounds present, nontender, nondistended. No hepatosplenomegaly or masses appreciated. Extremities: No clubbing, cyanosis, or edema. Skin: Normal temperature, turgor, and texture; no rash, ulcers, or subcutaneous nodules appreciated. Neurological: Cranial nerves grossly intact. Psychiatric: Normal mood and affect. Alert and oriented to person, place, and time. Objective Labs Result Diagrams: 02/09/19 14:35 02/10/19 05:07 Labs: Laboratory Results - last 24 hr 02/09/19 02/09/19 02/09/19 13:35 14:35 14:35 WBC 8.3 RBC 4.64 Hgb 14.2 Hct 42.9 MCV 92.4 MCH 30.7 MCHC 33.2 RDW 15.1 H Plt Count 160 Neut % (Auto) 67.7 Lymph % (Auto) 19.2 L [place] % (Auto) 10.4 Eos % (Auto) 2.2 Baso % (Auto) 0.5 Neut # (Auto) 5600 Lymph # (Auto) 1600 [place] # (Auto) 900 Eos # (Auto) 200 Baso # (Auto) 0 D-Dimer Sodium 138 Potassium 4.7 Chloride 103 Carbon Dioxide 24 BUN 22 H Creatinine 1.10 Estimated GFR > 60.0 BUN/Creatinine Ratio 20.0 Glucose 105 Hemoglobin A1c Calcium 9.1 Magnesium 1.6 Total Bilirubin 1.2 Conjugated Bilirubin 0.0 Unconjugated Bilirubin 0.8 AST 45 ALT 28 Alkaline Phosphatase 73 Total Creatine Kinase 49 L CK-MB (CK-2) TNP CK-MB (CK-2) Rel Index TNP Troponin I 0.022 B-Natriuretic Peptide 1250 H Total Protein 7.0 Albumin 4.3 Globulin 2.7 Albumin/Globulin Ratio 1.6 Triglycerides Cholesterol LDL Cholesterol, Calc HDL Cholesterol Procalcitonin TSH 02/09/19 02/10/19 02/10/19 14:35 05:07 05:07 WBC RBC Hgb Hct MCV MCH MCHC RDW Plt Count Neut % (Auto) Lymph % (Auto) [place] % (Auto) Eos % (Auto) Baso % (Auto) Neut # (Auto) Lymph # (Auto) [place] # (Auto) Eos # (Auto) Baso # (Auto) D-Dimer 216 Sodium 138 Potassium 3.7 Chloride 98 Carbon Dioxide 30 BUN 25 H Creatinine 1.00 Estimated GFR > 60.0 BUN/Creatinine Ratio 25.0 H Glucose 220 H D Hemoglobin A1c Calcium 9.1 Magnesium Total Bilirubin Conjugated Bilirubin Unconjugated Bilirubin AST ALT Alkaline Phosphatase Total Creatine Kinase CK-MB (CK-2) CK-MB (CK-2) Rel Index Troponin I B-Natriuretic Peptide Total Protein Albumin Globulin Albumin/Globulin Ratio Triglycerides Cholesterol LDL Cholesterol, Calc HDL Cholesterol Procalcitonin < 0.05 TSH 02/10/19 02/10/19 02/10/19 05:07 05:07 05:07 WBC RBC Hgb Hct MCV MCH MCHC RDW Plt Count Neut % (Auto) Lymph % (Auto) [place] % (Auto) Eos % (Auto) Baso % (Auto) Neut # (Auto) Lymph # (Auto) [place] # (Auto) Eos # (Auto) Baso # (Auto) D-Dimer Sodium Potassium Chloride Carbon Dioxide BUN Creatinine Estimated GFR BUN/Creatinine Ratio Glucose Hemoglobin A1c 7.0 H Calcium Magnesium Total Bilirubin Conjugated Bilirubin Unconjugated Bilirubin AST ALT Alkaline Phosphatase Total Creatine Kinase CK-MB (CK-2) CK-MB (CK-2) Rel Index Troponin I B-Natriuretic Peptide Total Protein Albumin Globulin Albumin/Globulin Ratio Triglycerides 62 Cholesterol 124 L LDL Cholesterol, Calc 63 HDL Cholesterol 49 Procalcitonin TSH 0.59 Assessment & Plan Assessment & Plan narrative: Riccardo Persaud is a 78-year-old male with a past medical history significant for hypertension, hyperlipidemia, diabetes mellitus type 2, non-insulin using, hypothyroidism, and moderate obesity who presented significant progressive shortness of breath over the last month. 1. New onset systolic CHF, likely ischemic cardiomyopathy, present on admission. Active. -Patient symptomatic with dyspnea at rest, BNP 1250, normal cardiac enzymes, failed outpatient therapy after started on oral Lasix 2 days ago. -EKG concerning for old inferior SC. Patient without prior history of CAD but likely had silent SC a month ago leading to current presentation. -Received Lasix 40 mg IV x1 in ED with 1 L urine output and improvement of dyspnea. Continue Lasix 40 mg IV every 12 hours until this evening. Plan to start tomorrow morning Bumex 2 mg daily (less cross-reactivity with sulfa allergy) and will titrate up as needed. -Ordered strict I&O and daily standing weights. -Continue aspirin 81 mg daily. -Echocardiogram demonstrated severely reduced LV function with EF 25-30%, moderate to severe global hypokinesis of the left ventricle and severe hypokinesis of the basal to mid inferior wall. Discussed patient with dependency case manager, Dr. Moreira, who recommended ischemic evaluation either inpatient versus outpatient once adequately diuresed. -Continue to monitor renal function and electrolytes with repletion as needed. Goal K+ 4.0 and Mg+ 2.0. 2. Hypertension, chronic, present on admission. Stable. -BP within normal range and well controlled. -Continue home carvedilol 25 mg twice daily, lisinopril 20 mg daily and hydrochlorothiazide 12.5 mg daily. 3. Hyperlipidemia, chronic, present on admission. Stable. -Fasting lipid panel well controlled and demonstrated: Total cholesterol 124, triglycerides 62, LDL 63 (goal < 70), and HDL 49. -Continue pravastatin 40 mg daily. 4. Hypothyroidism, chronic, present on admission. Stable. -TSH within normal limits at 0.59. -Continue levothyroxine 88 mcg daily. 5. Diabetes mellitus type 2, non-insulin using, present on admission. Stable. -Hemoglobin A1c 7.0%. -Continue metformin 500 mg twice daily. -Continue [facility] blood glucose checks and low-dose correctional scale insulin. 6. BPH, chronic, present on admission. Stable. -Continue home finasteride 5 mg daily and tamsulosin 0.4 mg daily. Disposition: Likely discharge home in 1-2 days Quality VTE Deep Vein Thrombosis/Pulmonary Embolism Present on Admission: No
--- NOTE | 2019-02-10 07:59 | P.PN_ITS ---
Subjective Date Patient Seen: 02/10/19 Interval history: Riccardo Persaud is a 78-year-old male with a past medical history significant for hypertension, hyperlipidemia, diabetes mellitus type 2, non-insulin using, hypothyroidism, and moderate obesity who presented significant progressive shortness of breath over the last month. The patient is resting in bedside chair comfortably. He reports shortness of b reath has improved. He endorses mild scratchy throat and his believes he may be more flush than usual. Patient is on hydrochlorothiazide and despite of past sulfa allergy. Plan to discontinue furosemide after evening dose and start Bumex which has less cross reactivity with self allergy. Discussed his echocardiogram in detail and informed him that it is likely he has had an ischemic insult sometime in the last month when his symptoms started. The patient reports several years ago he had chest pain in which he thought was indigestion he took Tums/antacid and hoped it went away. He has had no return of symptoms. He reports his shortness of breath started 1 month ago and has been gradual without any other symptoms. He denies headache, chest pain or pressure, shoulder pain or pressure, numbness or tingling of upper extremities or jaw, abdominal pain, nausea, vomiting, fever, chills, dysuria, diarrhea or constipation. He is voiding and eliminating without difficulty. He is up ambulating minimally with assistance. Exam Vital Signs (past 8 hours): - 02/10/19 03:05 Temperature 97.3 F L Pulse Rate 83 Respiratory Rate 16 Blood Pressure 136/93 H Pulse Oximetry 95 Oxygen Delivery Method Room Air Narrative Exam Narrative: General: Elderly male lying in bedside chair and in no acute distress, well- developed, well-nourished, appropriately interactive. HEENT: Normocephalic, atraumatic. External ears without defect. Pupils equal, round, and reactive to light. Anicteric sclerae, moist conjunctivae, and no lid lag. Oropharynx free of erythema and cobble stoning with moist mucosa. Neck: Supple with full range of motion. Mild JVD. No lymphadenopathy or thyromegaly. Cardiovascular: Regular rate and rhythm with grade +2/6 holosystolic murmur. No rubs or gallops appreciated. Pulmonary: Clear to auscultation bilaterally without crackles, wheezes, or rhonchi. Normal respiratory effort with no use of accessory muscles. Abdomen: Soft, bowel sounds present, nontender, nondistended. No hepatosplenomegaly or masses appreciated. Extremities: No clubbing, cyanosis, or edema. Skin: Normal temperature, turgor, and texture; no rash, ulcers, or subcutaneous nodules appreciated. Neurological: Cranial nerves grossly intact. Psychiatric: Normal mood and affect. Alert and oriented to person, place, and time. Objective Labs Result Diagrams: 02/09/19 14:35 02/10/19 05:07 Labs: Laboratory Results - last 24 hr 02/09/19 02/09/19 02/09/19 13:35 14:35 14:35 WBC 8.3 RBC 4.64 Hgb 14.2 Hct 42.9 MCV 92.4 MCH 30.7 MCHC 33.2 RDW 15.1 H Plt Count 160 Neut % (Auto) 67.7 Lymph % (Auto) 19.2 L [place] % (Auto) 10.4 Eos % (Auto) 2.2 Baso % (Auto) 0.5 Neut # (Auto) 5600 Lymph # (Auto) 1600 [place] # (Auto) 900 Eos # (Auto) 200 Baso # (Auto) 0 D-Dimer Sodium 138 Potassium 4.7 Chloride 103 Carbon Dioxide 24 BUN 22 H Creatinine 1.10 Estimated GFR > 60.0 BUN/Creatinine Ratio 20.0 Glucose 105 Hemoglobin A1c Calcium 9.1 Magnesium 1.6 Total Bilirubin 1.2 Conjugated Bilirubin 0.0 Unconjugated Bilirubin 0.8 AST 45 ALT 28 Alkaline Phosphatase 73 Total Creatine Kinase 49 L CK-MB (CK-2) TNP CK-MB (CK-2) Rel Index TNP Troponin I 0.022 B-Natriuretic Peptide 1250 H Total Protein 7.0 Albumin 4.3 Globulin 2.7 Albumin/Globulin Ratio 1.6 Triglycerides Cholesterol LDL Cholesterol, Calc HDL Cholesterol Procalcitonin TSH 02/09/19 02/10/19 02/10/19 14:35 05:07 05:07 WBC RBC Hgb Hct MCV MCH MCHC RDW Plt Count Neut % (Auto) Lymph % (Auto) [place] % (Auto) Eos % (Auto) Baso % (Auto) Neut # (Auto) Lymph # (Auto) [place] # (Auto) Eos # (Auto) Baso # (Auto) D-Dimer 216 Sodium 138 Potassium 3.7 Chloride 98 Carbon Dioxide 30 BUN 25 H Creatinine 1.00 Estimated GFR > 60.0 BUN/Creatinine Ratio 25.0 H Glucose 220 H D Hemoglobin A1c Calcium 9.1 Magnesium Total Bilirubin Conjugated Bilirubin Unconjugated Bilirubin AST ALT Alkaline Phosphatase Total Creatine Kinase CK-MB (CK-2) CK-MB (CK-2) Rel Index Troponin I B-Natriuretic Peptide Total Protein Albumin Globulin Albumin/Globulin Ratio Triglycerides Cholesterol LDL Cholesterol, Calc HDL Cholesterol Procalcitonin < 0.05 TSH 02/10/19 02/10/19 02/10/19 05:07 05:07 05:07 WBC RBC Hgb Hct MCV MCH MCHC RDW Plt Count Neut % (Auto) Lymph % (Auto) [place] % (Auto) Eos % (Auto) Baso % (Auto) Neut # (Auto) Lymph # (Auto) [place] # (Auto) Eos # (Auto) Baso # (Auto) D-Dimer Sodium Potassium Chloride Carbon Dioxide BUN Creatinine Estimated GFR BUN/Creatinine Ratio Glucose Hemoglobin A1c 7.0 H Calcium Magnesium Total Bilirubin Conjugated Bilirubin Unconjugated Bilirubin AST ALT Alkaline Phosphatase Total Creatine Kinase CK-MB (CK-2) CK-MB (CK-2) Rel Index Troponin I B-Natriuretic Peptide Total Protein Albumin Globulin Albumin/Globulin Ratio Triglycerides 62 Cholesterol 124 L LDL Cholesterol, Calc 63 HDL Cholesterol 49 Procalcitonin TSH 0.59 Assessment & Plan Assessment & Plan narrative: Riccardo Persaud is a 78-year-old male with a past medical history significant for hypertension, hyperlipidemia, diabetes mellitus type 2, non-insulin using, hypothyroidism, and moderate obesity who presented significant progressive shortness of breath over the last month. 1. New onset systolic CHF, likely ischemic cardiomyopathy, present on admission. Active. -Patient symptomatic with dyspnea at rest, BNP 1250, normal cardiac enzymes, failed outpatient therapy after started on oral Lasix 2 days ago. 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 Patient without prior history of CAD but likely had silent UT a month ago leading to current presentation. -Received Lasix 40 mg IV x1 in ED with 1 L urine output and improvement of dyspnea. Continue Lasix 40 mg IV every 12 hours until this evening. Plan to start tomorrow morning Bumex 2 mg daily (less cross-reactivity with sulfa allergy) and will titrate up as needed. -Ordered strict I&O and daily standing weights. -Continue aspirin 81 mg daily. -Echocardiogram demonstrated severely reduced LV function with EF 25-30%, moderate to severe global hypokinesis of the left ventricle and severe hypokinesis of the basal to mid inferior wall. Discussed patient with senior paralegal, Dr. Moreira, who recommended ischemic evaluation either inpatient versus outpatient once adequately diuresed. -Continue to monitor renal function and electrolytes with repletion as needed. Goal K+ 4.0 and Mg+ 2.0. 2. Hypertension, chronic, present on admission. Stable. -BP within normal range and well controlled. -Continue home carvedilol 25 mg twice daily, lisinopril 20 mg daily and hydrochlorothiazide 12.5 mg daily. 3. Hyperlipidemia, chronic, present on admission. Stable. -Fasting lipid panel well controlled and demonstrated: Total cholesterol 124, triglycerides 62, LDL 63 (goal < 70), and HDL 49. -Continue pravastatin 40 mg daily. 4. Hypothyroidism, chronic, present on admission. Stable. -TSH within normal limits at 0.59. -Continue levothyroxine 88 mcg daily. 5. Diabetes mellitus type 2, non-insulin using, present on admission. Stable. -Hemoglobin A1c 7.0%. -Continue metformin 500 mg twice daily. -Continue [facility] blood glucose checks and low-dose correctional scale insulin. 6. BPH, chronic, present on admission. Stable. -Continue home finasteride 5 mg daily and tamsulosin 0.4 mg daily. Disposition: Likely discharge home in 1-2 days Quality VTE Deep Vein Thrombosis/Pulmonary Embolism Present on Admission: No
[2019-02-10] MEDS: FUROSEMIDE 40 MG/4 ML VIAL IV ×2 (08:45→19:10)
[2019-02-10] MEDS: SODIUM CHLORIDE 0.9% FLUSH 10 ML IV ×2 (08:45→20:27)
[2019-02-10] MEDS: MAGNESIUM SULFATE 2 GM/50 ML PIGGYBACK IV (09:10)
--- NOTE | 2019-02-10 11:27 | PC.NURSE ---
Addendum entered by Jennifer Mazariegos R.N. 02/10/19 13:51: Denies throat feels improved after taking Benadryl, but denies any worsening of symptoms. Sitting up in chair, calmly visiting with his , no s/sx distress or discomfort. Agrees to take all of his meds as ordered now that he is officially inpatient status. Denies any needs at this time. Call light in reach. Addendum entered by Jennifer Mazariegos R.N. 02/10/19 12:45: Patient's reported, when she arrived, that patient's face looked flushed compared to normal. They asked if there was any chance of cross-sensitivity w/ Mag sulfate and Sulfa allergies. I checked with pharmacy, who said there should be no issue with Mag sulfate, but that Lasix does potentially have some cross sensitivities in people with Sulfa allergies. Patient did acknowledge that his throat is feeling a little funny. Denies SOB, resting quietly in chair in no distress. This senior copywriter reported all of this info to Dr Castellanos. Received order for 1X dose of PO Benadryl which was given. Now waiting on Dr Castellanos to make her rounds. Original Note: Shift summary: Awake and alert, oriented X3. Denies shortness of breath at rest, denies shortness of breath with ambulation in the room. States breathing feels so much better than it did at time of admission. Lungs sounded clear, a bit dim in posterior bases. Denies cough. Room air. ECHO has been completed this morning. Mag-rider infusing now, will start K-rider when complete. Steady on feet with SBA. Able to make needs known and calls appropriately. Light in reach.
[2019-02-10] MEDS: POTASSIUM CHLORIDE 40 MEQ in SODIUM CHLORIDE 0.9% 500 ML 130 ML IV (11:41)
[2019-02-10] MEDS: diphenhydrAMINE 25 MG TABLET PO (12:34)
--- NOTE | 2019-02-10 13:57 | CM.DANOTE ---
Discharge Planning/Care Management DCP: assessment: case received, EMR reviewed. Discussed in Team Rounds. Pt is a 78 year old male who admitted last evening to care of hospitalist team. PCP. Dr. Joel Mix Payer: Medicare and [facility]. Admission status: OBS with a changed to INPT admission status: 02/10: confirmed by UR RN Erik. [place] He has had increasing difficulties with SOB over the last month and now with new dx of CHF and need for IV diuretics. Dr. Castellanos anticipates he will be here for several days before he is ready for d/c consideration. PT/OT are not ordered. Dr. Castellanos says she will consider ordering same once pt's medical condition is a bit more stable and then if still indicated. P: Discuss in Team Rounds again tomorrow and then follow up to continue the assessment of d/c issues and options. CM Discharge Assessment Start: 02/10/19 13:55 Freq: Status: Active Protocol: Document 02/10/19 13:56 ITV (Rec: 02/10/19 13:57 ITV [id number]) Discharge Planning Assessment Advance Directives? No History Provided By Patient Medical Record Prior Living Arrangements House Household Members spouse Independent with ADL's Yes: limited by recent SOB Is patient alert and oriented? Yes Whiteboard Updated in Patient Room with Yes name and ext. # of Delivery Nurse Review Status In Process Next Review Type Continued Stay Review
--- NOTE | 2019-02-10 18:07 | PC.NURSE ---
Addendum entered by Kailey Johnson R.N. 02/10/19 21:15: Pt denies any concerns. HL intact/patent. Tele showing NSR/BBB/first degree AV block per ICU staff. HS CBG = 126, no coverage required, however did receive usual lantus dose. Relatively uneventful evening. Call light w/in reach, bed alarm on for pt safety. Continue w/plan of care. Original Note: Pt up independently in room. Lungs clear/diminishes at bases. SpO2 97% RA Tele shows NSR/BBB/first degree AVB per ICU staff. Denies any discomfort. HL right hand intat/patent. Call light w/in reach, bed alarm on for pt safety
[2019-02-10] MEDS: CARVEDILOL 25 MG TABLET PO (20:38)
[2019-02-11 00:18] VITALS: BP 127/73; PULSE 70; RESP 18; TEMP 36.6; O2SAT 96
[2019-02-11] MEDS: LEVOTHYROXINE 88 MCG TABLET PO (04:50)
[2019-02-11 05:39] VITALS: BP 124/81; PULSE 68; RESP 18; TEMP 36.3; O2SAT 97
[2019-02-11 06:24] LABS: Add Manual Diff / Slide Review NO; Basophils Absolute Auto 0 /uL (0-100); Basophils Percent Auto 0.2 % (0-2); Eosinophils Absolute Auto 100 /uL (0-450); Eosinophils Percent Auto 0.6 % (2-4); Hematocrit 43.5 % (41-53); Hemoglobin 14.2 g/dL (13.5-17.5); Lymphocytes Absolute Auto 2200 /uL (1100-4500); Lymphocytes Percent Auto 15.7 % (25-40); Mean Corpuscular HGB Conc 32.7 % (30-36); Monocytes Absolute Auto 1300 /uL (0-900); Monocytes Percent Auto 9.4 % (3-14); Neutrophils Absolute Auto 10200 /uL (1500-7000); Neutrophils Percent Auto 74.1 % (50-75); Platelet Count 174 X10^3/uL (150-400); Red Blood Cell Count 4.73 X10^6/uL (4.5-5.9); Red Cell Distribution Width 15.5 % (11.6-14.8); White Blood Cell Count 13.8 X10^3/uL (4.5-11.0)
[2019-02-11 06:32] LABS: BUN Creatinine Ratio 31.8 (6-22); Blood Urea Nitrogen 35 mg/dL (9-20); Calcium 8.8 mg/dL (8.4-10.2); Carbon Dioxide 30 mmol/L (22-32); Chloride 98 mmol/L (98-107); Estimated Glomerular Filt Rate > 60.0 mL/min (>60); Glucose 157 mg/dL (80-110); HEMOLYSIS < 15 (0-50); Potassium 3.4 mmol/L (3.4-5.1); Sodium 138 mmol/L (137-145)
[2019-02-11 08:00] VITALS: BP 137/88; PULSE 76; RESP 18; TEMP 36.3; O2SAT 98
[2019-02-11] MEDS: BUMETANIDE 1 MG TABLET 2 MG PO (09:49)
[2019-02-11] MEDS: METFORMIN HCL 500 MG TABLET PO (09:49)
--- NOTE | 2019-02-11 09:49 | CM.DANOTE ---
DCP: continued: case discussed in Team Rounds. Dr. Castellanos says pt will transfer to [facility] as soon as bed available. She has an accepting floor worker well service. RN Coordinator Ktae is following for transfer details.
[2019-02-11] MEDS: hydroCHLOROthiazide 12.5 MG CAPSULE PO (09:50)
[2019-02-11] MEDS: FINASTERIDE 5 MG TABLET PO (09:50)
[2019-02-11] MEDS: TAMSULOSIN 0.4 MG CAPSULE PO (09:51)
[2019-02-11] MEDS: SODIUM CHLORIDE 0.9% FLUSH 10 ML IV (09:51)
[2019-02-11] MEDS: LISINOPRIL 20 MG TABLET PO (09:51)
[2019-02-11] MEDS: PRAVASTATIN 20 MG TABLET 40 MG PO (09:51)
--- NOTE | 2019-02-11 10:08 | P.DS_ITS ---
History of Present Illness Date Patient Seen: 02/09/19 Chief complaint: SOB Narrative: Written by Dr. Wynn: Patient is a 78-year-old male, established with Dr. Yosef Mix MD with history of type 2 diabetes, hypertension, hyperlipidemia, hypothyroidism presented to ED with complaints of progressive shortness of breath. Patient started experiencing dyspnea on exertion about a month ago where he would get out of breath with walking or climbing up a flight of stairs. Symptoms have been progressive over the past couple of weeks to the point where he gets out of breath just combing his hair and has difficulty completing a sentence. He sleeps propped up on pillows but that is not something recent. He denies paroxysmal nocturnal dyspnea. He denies fevers or coughs. Also he has not not iced any chest discomfort. He has noticed some swelling in his scrotum and lower extremities which is new over the past month. He saw a provider in clinic a couple of days ago and given prescription for ciprofloxacin and furosemide 20 mg daily. He states the ciprofloxacin was for the scrotal swelling although he had not noticed any dysuria or testicular pain. He denies prior history of coronary artery disease or TX. ED evaluation included initial normal vitals with temperature 98.6?, BP 129/72, pulse 72, respirations 18, O2 sat 96% room air. However his BMP was elevated at 1250, cardiac enzymes normal, creatinine 1.10, glucose 105. Chest x-ray without abnormality. EKG showed sinus rhythm with right bundle branch block and evidence of old inferior TX. Patient does have hip arthritis and anticipating hip replacement with Dr. Evon Lima at end of March or early April. Family history: Mother had CHF and diabetes. Social history: , former smoker, rare alcohol use Discharge Providers Date of admission: 02/10/19 13:41 Discharge Date: 02/11/19 Primary care physician: Yosef Mix MD Consults: 02/09/19 18:02 Consult to Pastoral Services Routine Comment: pt is baptism, but would like someone to come by Discharge provider: Scarlet Castellanos DO Summary Discharge Diagnosis: 1. New onset systolic CHF, secondary to ischemic cardiomyopathy, present on admission. Active. 2. Hypertension, chronic, present on admission. Stable. 3. Hyperlipidemia, chronic, present on admission. Stable. 4. Hypothyroidism, chronic, present on admission. Stable. 5. Diabetes mellitus type 2, non-insulin using, present on admission. Stable. 6. BPH, chronic, present on admission. Stable. 7. History of obstructive sleep apnea no longer on CPAP. Hospital Course: Riccardo Persaud is a 78-year-old male with a past medical history significant for hypertension, hyperlipidemia, diabetes mellitus type 2, non-insulin using, hypothyroidism, and moderate obesity who presented significant progressive shortness of breath over the last month. 1. New onset systolic CHF, secondary to probable ischemic cardiomyopathy, present on admission. Active. -Patient symptomatic with dyspnea at rest, BNP 1250, normal cardiac enzymes, failed outpatient therapy after started on oral Lasix 2 days ago. 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 Patient without prior history of CAD but likely had silent TX a month ago leading to current presentation. -Received Lasix 40 mg IV x1 in ED with 1 L urine output and improvement of dyspnea. Continue Lasix 40 mg IV every 12 hours until this evening. Continue Bumex 2 mg daily (less cross-reactivity with sulfa allergy) and may titrate up as needed. Continued strict I&O and daily standing weights. Net -8 L. -Continued aspirin 325 mg daily, carvedilol 25 mg twice daily, hydrochlorothiazide 12.5 mg daily, lisinopril 20 mg daily, and pravastatin 40 mg daily. -Echocardiogram demonstrated severely reduced LV function with EF 25-30%, moderate to severe global hypokinesis of the left ventricle and severe hypokinesis of the basal to mid inferior wall. -Continued to monitor renal function and electrolytes with repletion as needed. Goal K+ 4.0 and Mg+ 2.0. Potassium 60 mEq IV x 1 given today. May need to be on electrolyte repletion before discharge home. -Continued to monitor on telemetry. Patient had 8 beat run of V-tach today 02/11 that was asymptomatic. -Discussed patient with [facility] cuprous chloride helper, Dr. Corona, who recommends transfer to [facility] for cardiac catheterization and ischemic evaluation. 2. Hypertension, chronic, present on admission. Stable. -BP within normal range and well controlled. -Continued home carvedilol 25 mg twice daily, lisinopril 20 mg daily and hydrochlorothiazide 12.5 mg daily. 3. Hyperlipidemia, chronic, present on admission. Stable. -Fasting lipid panel well controlled and demonstrated: Total cholesterol 124, triglycerides 62, LDL 63 (goal < 70), and HDL 49. -Continued pravastatin 40 mg daily. 4. Hypothyroidism, chronic, present on admission. Stable. -TSH within normal limits at 0.59. -Continued levothyroxine 88 mcg daily. 5. Diabetes mellitus type 2, non-insulin using, present on admission. Stable. -Hemoglobin A1c 7.0%. -Continued metformin 500 mg twice daily. -Continued [facility] blood glucose checks and low-dose correctional scale insulin. 6. BPH, chronic, present on admission. Stable. -Continued home finasteride 5 mg daily and tamsulosin 0.4 mg daily. 7. History of obstructive sleep apnea no longer on CPAP. -Patient reports 10-15 years ago he was on CPAP when his machine stopped working at night while he was sleeping causing severe panic and feeling of suffocation. He has not use CPAP since. -Recommended outpatient sleep study for which he is willing to pursue. Status at Discharge Functional status at discharge: uses cane/walker Overall status at discharge: patient is progressing back to baseline Exam Vital Signs (past 8 hours): - 02/11/19 05:39 02/11/19 08:00 Temperature 97.3 F L 97.4 F L Pulse Rate 68 76 Respiratory Rate 18 18 Blood Pressure 124/81 137/88 Pulse Oximetry 97 98 Oxygen Delivery Method Room Air Oxygen Flow Rate 0 Narrative Exam Narrative: General: Elderly male lying in bedside chair and in no acute distress, well- developed, well-nourished, appropriately interactive. HEENT: Normocephalic, atraumatic. External ears without defect. Pupils equal, round, and reactive to light. Anicteric sclerae, moist conjunctivae, and no lid lag. Oropharynx free of erythema and cobble stoning with moist mucosa. Neck: Supple with full range of motion. No JVD. No lymphadenopathy or thyromegaly. Cardiovascular: Regular rate and rhythm with grade +2/6 holosystolic murmur. No rubs or gallops appreciated. Pulmonary: Clear to auscultation bilaterally with fine crackles at left base. No wheezes or rhonchi. Normal respiratory effort with no use of accessory muscles. Abdomen: Soft, bowel sounds present, nontender, nondistended. No hepatosplenomegaly or masses appreciated. Genitourinary: Scrotum without lesions, edema or erythema. Extremities: No clubbing, cyanosis, or edema. Skin: Normal temperature, turgor, and texture; no rash, ulcers, or subcutaneous nodules appreciated. Neurological: Cranial nerves grossly intact. Psychiatric: Normal mood and affect. Alert and oriented to person, place, and time. Objective Labs Result Diagrams: 02/11/19 05:45 02/11/19 05:45 Labs: Laboratory Results - last 24 hr 02/11/19 02/11/19 05:45 05:45 WBC 13.8 H D RBC 4.73 Hgb 14.2 Hct 43.5 MCV 92.0 MCH 30.0 MCHC 32.7 RDW 15.5 H Plt Count 174 Neut % (Auto) 74.1 Lymph % (Auto) 15.7 L [place] % (Auto) 9.4 Eos % (Auto) 0.6 L Baso % (Auto) 0.2 Neut # (Auto) 32528 H Lymph # (Auto) 2200 [place] # (Auto) 1300 H Eos # (Auto) 100 Baso # (Auto) 0 Sodium 138 Potassium 3.4 Chloride 98 Carbon Dioxide 30 BUN 35 H Creatinine 1.10 Estimated GFR > 60.0 BUN/Creatinine Ratio 31.8 H Glucose 157 H Calcium 8.8 Magnesium 2.0 Discharge Plan Discharge Plan Patient Disposition: [facility] Transfer to: [facility] Under care of provider: Dr. Diaz Discharge comment: Your being transferred to [facility] for cardiac catheterization to evaluate for ischemic heart disease. your diuretic was changed from furosemide to bumetanide 2 mg daily and may be increased if needed. You may need to be on electrolyte repletion which will need to be determined before you are discharged home. Discharge Med Rec/Prescriptions Prescriptions: New bumetanide 1 mg Tablet 2 mg PO DAILY Qty: 30 RF: 0 Continued metformin 500 mg Tablet 1 tab PO BID RF: 0 carvedilol 25 mg tablet 1 tab PO BID RF: 0 lisinopril-hydrochlorothiazide 20-12.5 mg Tablet 1 tab PO DAILY RF: 0 aspirin 325 mg Tablet 325 mg PO DAILY RF: 0 pravastatin 40 mg tablet 1 tab PO DAILY RF: 0 albuterol sulfate [Ventolin HFA] 90 mcg/actuation Hfa Aerosol Inhaler 2 puff Inhalation PRN PRN (Reason: sob) RF: 0 finasteride 5 mg tablet 1 tab PO DAILY RF: 0 B-complex with vitamin C [Super B Complex-Vitamin C] Tablet 1 tab PO DAILY RF: 0 glucosamine-chondroitin 750-600 mg Tablet 2 tab PO DAILY RF: 0 levothyroxine 88 mcg Capsule 88 mcg PO DAILY RF: 0 tamsulosin 0.4 mg Capsule 0.4 mg PO QAM RF: 0 Discontinued ciprofloxacin HCl [Cipro] 500 mg Tablet 500 mg PO Q12H RF: 0 furosemide 20 mg Tablet 1 tab PO DAILY RF: 0 Follow up/Referrals: Yosef Mix MD [Primary Care Provider] - Discharge Health Status Multidrug resistant organism: No MDRO Precautions: [place] Provider Discharge Instructions Diet: Carb-consistent/Diabetic, Low-fat, Low-sodium and Low-cholesterol Diet comment: NPO at midnight Activity: Activity as tolerated with FWW Discharge Data Primary Care Provider: Yosef Mix Attending Provider: Mikael Wynn Admit Date/Time: 02/10/19 13:41 Quality VTE Deep Vein Thrombosis/Pulmonary Embolism Present on Admission: No
[2019-02-11] MEDS: POTASSIUM CHLORIDE 60 MEQ in SODIUM CHLORIDE 0.9% 500 ML 88.333 ML IV (10:43)
[2019-02-11 10:53] VITALS: O2SAT 98
[2019-02-11 12:00] VITALS: BP 141/70; PULSE 70; RESP 16; TEMP 36.2; O2SAT 98
--- NOTE | 2019-02-11 15:29 | PC.NURSE ---
Transfer: (left approx 1430)- IV left in place, sent with remainder of K-rider and transport operations inspector aware of ordered rate. Our tele monitor removed, hooked up to transport monitor. Transfer packet and report given to ambulance staff. All personal belongings sent with patient. Transferred into [facility] and taken out by ambulance staff. Report called to Rubina at [facility].
== END 2019-02-11 14:30 | disposition short-term general hospital (02) | DRG 291 ==
LOC: ED 16:35 → AC 17:26
PROVIDERS: Internal Medicine; Admitting Provider Internal Medicine; Emergency Provider Emergency Medicine; PCP Internal Medicine; Visit Provider Internal Medicine
DX: I11.0 Hypertensive heart disease with heart failure (principal); I50.21 Acute systolic (congestive) heart failure; I25.5 Ischemic cardiomyopathy; I25.2 Old myocardial infarction; E11.9 Type 2 diabetes mellitus without complications; E78.5 Hyperlipidemia, unspecified; E03.9 Hypothyroidism, unspecified; N40.0 Benign prostatic hyperplasia without lower urinary tract symptoms
CPT/HCPCS: 36415; 36591; 71045; 80048; 80061; 80076; 81003; 82550; 82962; 83036; 83735; 83880; 84145; 84443; 84484; 85025; 85379; 93005; 93306; 94640; 96374; 96375; 99285; G0378; J1940; J2930; J3480

== ENCOUNTER 2019-02-22 21:13 | Emergency (ER) | payer MEDICARE, OTHER, SELFPAY ==
[2019-02-09 17:50] VITALS: BMI 30.9
[2019-02-22 21:18] VITALS: BP 115/72; PULSE 81; RESP 18; TEMP 36.7; O2SAT 100
--- NOTE | 2019-02-22 21:20 | ED.WEAKNESS ---
HPI - Weakness General Chief complaint: Weakness Stated complaint: Generalized weakness Time Seen by Provider: 02/22/19 21:19 Source: patient Mode of arrival: ambulatory Limitations: no limitations History of Present Illness HPI Narrative: Patient is a 78-year-old male here for evaluation of weakness. Patient states that earlier today he felt like he was not drinking enough water. He stated that he ate dinner. Was sitting on his recliner watching TV. He states that he went to get a drink of water and realized that he had difficulty opening the water due to weakness in his hands. He states that he tried the other hand it was the same way. He states that he was unable to stand because of weakness. By the time he arrived here in the emergency department he states he feels much better. Denies any other associated symptoms at the time of this weakness. Related Data Home Medications Medication Instructions Recorded Confirmed B-complex with vitamin C [Super B 1 tab PO DAILY 02/09/19 02/09/19 Complex-Vitamin C] albuterol sulfate [Ventolin HFA] 2 puff INHALATION PRN PRN 02/09/19 02/09/19 aspirin 325 mg PO DAILY 02/09/19 02/09/19 carvedilol 1 tab PO BID 02/09/19 02/09/19 finasteride 1 tab PO DAILY 02/09/19 02/09/19 glucosamine-chondroitin 2 tab PO DAILY 02/09/19 02/09/19 levothyroxine 88 mcg PO DAILY 02/09/19 02/09/19 lisinopril-hydrochlorothiazide 1 tab PO DAILY 02/09/19 02/09/19 metformin 1 tab PO BID 02/09/19 02/09/19 pravastatin 1 tab PO DAILY 02/09/19 02/09/19 tamsulosin 0.4 mg PO QAM 02/09/19 02/09/19 Previous Rx's Medication Instructions Recorded bumetanide 2 mg PO DAILY #30 tab 02/11/19 Allergies Allergy/AdvReac Type Severity Reaction Status Date / Time cephalexin [From Keflex] Allergy Verified 02/22/19 21:21 codeine Allergy Verified 02/22/19 21:21 Penicillins Allergy Verified 02/22/19 21:21 Sulfa (Sulfonamide Allergy Verified 02/22/19 21:21 Antibiotics) Review of Systems Constitutional Denies chills, Denies fatigue, Denies fever(s), Denies headache(s), Denies lethargy and Reports weakness ENT Ears, Nose, Mouth, and Throat: Denies vertigo, Denies dizziness and Denies headache(s) Cardiovascular Denies chest pain and Denies dyspnea Respiratory Denies cough and Denies dyspnea Gastrointestinal Gastrointestinal: Denies abdominal pain, Denies nausea and Denies vomiting Musculoskeletal Denies myalgias, Denies arthralgias and Denies numbness Comments: Weakness in his hands Integumentary/Breasts Denies rash Neurologic Denies behavioral changes, Denies confusion, Denies vertigo, Denies dizziness, Denies headache(s), Denies numbness and Reports weakness Psychiatric Denies behavioral changes and Denies confusion Endocrine Denies fatigue Hematologic/Lymphatic Denies easy bleeding and Denies easy bruising [facility] Medical History Anxiety (Acute) Arthritis of both knees (Acute) Benign prostate hyperplasia (Acute) Bilateral hip joint arthritis (Acute) Diabetes mellitus (Acute) HTN (hypertension) (Acute) Hypothyroidism (Acute) Lipidemia (Acute) Surgical History H/O colectomy (Acute) Hx of hand surgery (Acute) Social History household members: spouse Smoking Status: Former smoker alcohol intake: current Social History household members: spouse Smoking Status: Former smoker alcohol intake: current Exam Initial Vital Signs Initial Vital Signs: Vital Signs Temperature 98.1 F 02/22/19 21:18 Pulse Rate 81 02/22/19 21:18 Respiratory Rate 18 02/22/19 21:18 Blood Pressure 115/72 02/22/19 21:18 Pulse Oximetry 100 02/22/19 21:18 Const General: cooperative, healthy appearing, comfortable, well developed, well groomed and No acute distress Orientation: alert, awake and oriented x3 HENMT Head: normal to inspection and normocephalic Resp Effort & Inspection: normal respiratory effort Auscultation: clear to auscultation bilaterally Cardio Rate: regular rate Rhythm: regular rhythm Pulses: radial pulses present GI Inspection: non-distended Palpation: soft Skin Lesions: no lesions Rashes: no rashes Neuro General: alert, awake and oriented x3 Cognition: normal cognition Speech: speech normal Motor: muscle tone normal throughout Extrem General: normal to inspection and capillary refill normal Psych Appearance: grossly normal and well kempt Course Orders Ordered: ED Orders 02/22/19 21:23 XR chest 1V Stat EKG-12 Lead Stat 02/22/19 21:31 Complete Blood Count AUTO DIFF Stat Comprehensive Metabolic Panel Stat Lipase Stat Partial Thromboplastin Time Stat Prothrombin Time INR Stat Troponin & CK Cardiac Panel Stat 02/22/19 21:40 CT head/brain wo con Stat Discontinued Medications Al Hydrox/Mg Hydrox/Simethicone (Maalox Plus) 30 ml PO NOW ONE Stop: 02/22/19 23:08 Last Admin: 02/22/19 23:08 Dose: 30 ml Vital Signs - 8 hr 02/22/19 21:18 02/22/19 22:00 02/22/19 23:00 Temperature 98.1 F Pulse Rate 81 85 86 Respiratory Rate 18 18 23 Blood Pressure 115/72 Blood Pressure [Right Arm] 104/56 L 146/87 H Pulse Oximetry 100 02/23/19 00:16 Temperature 98.5 F Pulse Rate 81 Respiratory Rate 16 Blood Pressure 106/70 Blood Pressure [Right Arm] Pulse Oximetry 96 MDM - Weakness Medical Records Attestation: I reviewed the patient's medical records. Lab Data Attestation: I reviewed the patient's lab results. Result diagrams: 02/22/19 21:31 02/22/19 21:31 Lab Results 02/22/19 02/22/19 02/22/19 Range/Units 21:31 21:31 21:31 WBC 12.2 H (4.5-11.0) X10^3/uL RBC 5.43 (4.5-5.9) X10^6/uL Hgb 16.2 (13.5-17.5) g/dL Hct 49.4 (41-53) % MCV 91.0 (80-100) fL MCH 29.7 (26-34) PG MCHC 32.7 (30-36) % RDW 14.4 (11.6-14.8) % Plt Count 233 (150-400) X10^3/uL Neut % (Auto) 72.4 (50-75) % Lymph % (Auto) 16.0 L (25-40) % Lyman % (Auto) 9.3 (3-14) % Eos % (Auto) 1.7 L (2-4) % Baso % (Auto) 0.6 (0-2) % Neut # (Auto) 8900 H (5688-3014) /uL Lymph # (Auto) 2000 (4864-2036) /uL Lyman # (Auto) 1100 H (0-900) /uL Eos # (Auto) 200 (0-450) /uL Baso # (Auto) 100 (0-100) /uL PT 12.2 (10.1-12.7) SECONDS INR 1.1 (0.9-1.3) APTT 27 (26.4-36.2) SECONDS Sodium 131 L (137-145) mmol/L Potassium 5.9 H (3.4-5.1) mmol/L Chloride 98 (98-107) mmol/L Carbon Dioxide 20 L (22-32) mmol/L BUN 45 H (9-20) mg/dL Creatinine 1.40 H (0.66-1.25) mg/dL Estimated GFR 48.9 L (>60) mL/min BUN/Creatinine Ratio 32.1 H (6-22) Glucose 125 H (80-110) mg/dL Calcium 9.4 (8.4-10.2) mg/dL Total Bilirubin 1.0 (0.2-1.3) mg/dL AST 35 (17-59) IU/L ALT 31 (21-72) IU/L Alkaline Phosphatase 95 (38-126) U/L Total Creatine Kinase 39 L (55-170) U/L CK-MB (CK-2) TNP CK-MB (CK-2) Rel Index TNP Troponin I < 0.012 (0.01-0.034) ng/mL Total Protein 8.1 (6.3-8.2) g/dL Albumin 4.6 (3.5-5.0) g/dL Globulin 3.5 (1.7-4.1) g/dL Albumin/Globulin Ratio 1.3 (1.0-2.8) Lipase 2288 H (23-300) U/L Imaging Data Chest x-ray: Radiologist's impression: Patient: Riccardo Persaud#: [id number] : 9Acct:[id number] Age/Sex: 78 / MDate of Service: 02/22/19 Loc: ED Accession Number: [id number] Procedure: XR chest 1V Ordering Provider: Greg Chan D.O. PROCEDURE: XR CHEST 1V INDICATIONS: chest pain TECHNIQUE: One view of the chest was acquired. COMPARISON: None. FINDINGS: Surgical changes and devices: None. Lungs and pleura: Lungs are clear. No pleural effusions or pneumothorax. Mediastinum: Mediastinal contours appear normal. Heart size is normal. Bones and chest wall: No suspicious bony lesions. Overlying soft tissues appear unremarkable. IMPRESSION: No acute disease. Dictated by: Gee Gamble M.D. on 02/22/2019 at 22:01 Approved by: Gee Gamble M.D. on 02/22/2019 at 22:01 CT scan - head: Radiologist's impression: [place] [address] CT Scan Report Signed Patient: Narciso Persaud#: [id number] : 9Acct:[id number] Age/Sex: 78 / MDate of Service: 02/22/19 Loc: ED Accession Number: [id number] Procedure: CT head/brain wo con Ordering Provider: Caitlyn Simmons PATIENT SUPPORT ASSISTANT-BC PROCEDURE: CT HEAD/BRAIN WO CON INDICATIONS: episode of weakness TECHNIQUE: Noncontrast 4.5 mm thick angled axial sections acquired from the foramen magnum to the vertex, with coronal and sagittal reformats. For radiation dose reduction, the following was used: automated exposure control, adjustment of mA and/or kV according to patient size. COMPARISON: None. FINDINGS: Image quality: Excellent. CSF spaces: Basal cisterns are patent. No extra-axial fluid collections. The ventricles are symmetric in size and shape. Brain: No intracranial bleeds or masses. There is cerebral volume loss for age, with resultant ventricular and sulcal prominence. There are periventricular and deep white matter chronic small vessel ischemic changes. There is intracranial internal carotid artery atherosclerosis. Skull and face: Calvarium and visualized facial bones appear intact, without suspicious lesions. Sinuses: Visualized sinuses and mastoids are clear. IMPRESSION: No acute intracranial process Dictated by: Gee Gamble M.D. on 02/22/2019 at 21:58 Approved by: Gee Gamble M.D. on 02/22/2019 at 22:00 ECG Data Attestation: I personally reviewed and interpreted this ECG as follows: Prior ECG tracings: not available for review Interpretation: Sinus rhythm Ventricular rate of 82 Left axis deviation QRS [address] T wave changes Similar to previous rhythm strips found in patient's medical record MDM Narrative Medical decision making narrative: Patient recently was admitted for a CHF exacerbation and was sent to [facility]. He states that time he had a cardiac catheterization and was told that his coronary arteries were open. No stents were placed. He was given Lasix and stated that he has lost quite a bit of weight recently secondary to this. He does have a slightly elevated lipase today however no left upper quadrant tenderness. I have low suspicion for pancreatitis. He does have a leukocytosis however no signs of an infection. Upon arrival patient was slightly hypotensive. He recently had his Coreg reduced and half by his primary doctor. I have a strong suspicion that patient's symptoms today are related to his blood pressure. They are not consistent with a CVA. His head CT was unremarkable. Not consistent with a TIA. Having a recent catheterization showing pain coronary is also low suspicion for CAD. I suspect that the patient has not been drinking as much today which he admitted to. This would explain his slightly elevated creatinine. So also explain his relative hypotension. Given his recent weight loss secondary to the Lasix which is water weight he is also having times of hypotension. I discussed all this with the patient and the family. We came up with a plan with his home blood pressure medications. He was given strict return precautions. They all expressed understanding and agreement with going home. Discharge Plan Departure Patient Disposition: Home Clinical Impression: Weakness Discharge Date/Time: 02/23/19 00:18 Interventions: ED Discharge Assessment Last Done: 02/23/19 00:16 Instructions: Blood Pressure Testing and Measurement Activity Restrictions/Additional Instructions: On Sunday morning contact your primary care doctor for a follow-up. Continue your medications as directed like we discussed. Return to the emergency department for any new or worsening symptoms Prescriptions: No Action metformin 500 mg Tablet 1 tab PO BID RF: 0 carvedilol 25 mg tablet 1 tab PO BID RF: 0 lisinopril-hydrochlorothiazide 20-12.5 mg Tablet 1 tab PO DAILY RF: 0 aspirin 325 mg Tablet 325 mg PO DAILY RF: 0 pravastatin 40 mg tablet 1 tab PO DAILY RF: 0 albuterol sulfate [Ventolin HFA] 90 mcg/actuation Hfa Aerosol Inhaler 2 puff Inhalation PRN PRN (Reason: sob) RF: 0 finasteride 5 mg tablet 1 tab PO DAILY RF: 0 B-complex with vitamin C [Super B Complex-Vitamin C] Tablet 1 tab PO DAILY RF: 0 glucosamine-chondroitin 750-600 mg Tablet 2 tab PO DAILY RF: 0 levothyroxine 88 mcg Capsule 88 mcg PO DAILY RF: 0 tamsulosin 0.4 mg Capsule 0.4 mg PO QAM RF: 0 bumetanide 1 mg Tablet 2 mg PO DAILY Qty: 30 RF: 0 Referrals: Yosef Mix MD [Primary Care Provider] -
--- NOTE | 2019-02-22 21:23 | DI.RAD.S_ITS ---
PROCEDURE: XR CHEST 1V INDICATIONS: chest pain TECHNIQUE: One view of the chest was acquired. COMPARISON: None. FINDINGS: Surgical changes and devices: None. Lungs and pleura: Lungs are clear. No pleural effusions or pneumothorax. Mediastinum: Mediastinal contours appear normal. Heart size is normal. Bones and chest wall: No suspicious bony lesions. Overlying soft tissues appear unremarkable. IMPRESSION: No acute disease. Dictated by: Gee Gamble M.D. on 02/22/2019 at 22:01 Approved by: Gee Gamble M.D. on 02/22/2019 at 22:01
[2019-02-22 21:35] LABS: Add Manual Diff / Slide Review NO; Basophils Absolute Auto 100 /uL (0-100); Basophils Percent Auto 0.6 % (0-2); Eosinophils Absolute Auto 200 /uL (0-450); Eosinophils Percent Auto 1.7 % (2-4); Hematocrit 49.4 % (41-53); Hemoglobin 16.2 g/dL (13.5-17.5); Lymphocytes Absolute Auto 2000 /uL (1100-4500); Mean Corpuscular HGB Conc 32.7 % (30-36); Mean Corpuscular Hemoglobin 29.7 PG (26-34); Monocytes Absolute Auto 1100 /uL (0-900); Monocytes Percent Auto 9.3 % (3-14); Neutrophils Absolute Auto 8900 /uL (1500-7000); Neutrophils Percent Auto 72.4 % (50-75); Platelet Count 233 X10^3/uL (150-400); Red Blood Cell Count 5.43 X10^6/uL (4.5-5.9); Red Cell Distribution Width 14.4 % (11.6-14.8); White Blood Cell Count 12.2 X10^3/uL (4.5-11.0)
--- NOTE | 2019-02-22 21:38 | PC.NURSE ---
Pt states that he has had changes in his blood pressure medications recently r/t hypotension.
--- NOTE | 2019-02-22 21:40 | DI.CT.S_ITS ---
PROCEDURE: CT HEAD/BRAIN WO CON INDICATIONS: episode of weakness TECHNIQUE: Noncontrast 4.5 mm thick angled axial sections acquired from the foramen magnum to the vertex, with coronal and sagittal reformats. For radiation dose reduction, the following was used: automated exposure control, adjustment of mA and/or kV according to patient size. COMPARISON: None. FINDINGS: Image quality: Excellent. CSF spaces: Basal cisterns are patent. No extra-axial fluid collections. The ventricles are symmetric in size and shape. Brain: No intracranial bleeds or masses. There is cerebral volume loss for age, with resultant ventricular and sulcal prominence. There are periventricular and deep white matter chronic small vessel ischemic changes. There is intracranial internal carotid artery atherosclerosis. Skull and face: Calvarium and visualized facial bones appear intact, without suspicious lesions. Sinuses: Visualized sinuses and mastoids are clear. IMPRESSION: No acute intracranial process Dictated by: Gee Gamble M.D. on 02/22/2019 at 21:58 Approved by: Gee Gamble M.D. on 02/22/2019 at 22:00
[2019-02-22 21:41] LABS: INR 1.1 (0.9-1.3); Prothrombin Time 12.2 SECONDS (10.1-12.7)
[2019-02-22 21:44] LABS: PTT Partial Thromboplastin Tim 27 SECONDS (26.4-36.2)
[2019-02-22 21:47] LABS: Alanine Aminotransferase 31 IU/L (21-72); Albumin 4.6 g/dL (3.5-5.0); Albumin Globulin Ratio 1.3 (1.0-2.8); Alkaline Phosphatase 95 U/L (38-126); Aspartate Aminotransferase 35 IU/L (17-59); BUN Creatinine Ratio 32.1 (6-22); Blood Urea Nitrogen 45 mg/dL (9-20); Calcium 9.4 mg/dL (8.4-10.2); Carbon Dioxide 20 mmol/L (22-32); Chloride 98 mmol/L (98-107); Creatine Kinase 39 U/L (55-170); Estimated Glomerular Filt Rate 48.9 mL/min (>60); Globulin 3.5 g/dL (1.7-4.1); Glucose 125 mg/dL (80-110); HEMOLYSIS 26 (0-50); Sodium 131 mmol/L (137-145); Total Protein 8.1 g/dL (6.3-8.2)
[2019-02-22 21:49] LABS: Potassium 5.9 mmol/L (3.4-5.1)
[2019-02-22 21:55] LABS: Lipase 2288 U/L (23-300)
[2019-02-22 21:59] LABS: Troponin I < 0.012 ng/mL (0.01-0.034)
[2019-02-22 22:00] VITALS: BP 104/56; PULSE 85; RESP 18
[2019-02-22 23:00] VITALS: BP 146/87; PULSE 86; RESP 23
[2019-02-22] MEDS: MAG HYDROX/ALUM/SIMETH 30 ML UDC PO (23:08)
[2019-02-23 00:16] VITALS: BP 106/70; PULSE 81; RESP 16; TEMP 36.9; O2SAT 96
== END 2019-02-23 00:18 | disposition home or self-care (01) ==
PROVIDERS: Emergency Provider Emergency Medicine; PCP Internal Medicine
DX: R53.1 Weakness (principal); I95.9 Hypotension, unspecified; R79.89 Other specified abnormal findings of blood chemistry
CPT/HCPCS: 36591; 70450; 71045; 80053; 82550; 83690; 84484; 85025; 85610; 85730; 93005; 93010; 99283; 99285

== ENCOUNTER → 2019-05-01 11:22 | Outpatient (CLI) | payer MEDICARE, OTHER, SELFPAY ==
[2019-02-09 17:50] VITALS: BMI 30.9
[2019-05-01 12:46] LABS: BUN Creatinine Ratio 26.7 (6-22); Blood Urea Nitrogen 24 mg/dL (9-20); Calcium 9.7 mg/dL (8.4-10.2); Carbon Dioxide 25 mmol/L (22-32); Chloride 104 mmol/L (98-107); Estimated Glomerular Filt Rate > 60.0 mL/min (>60); Glucose 129 mg/dL (80-110); HEMOLYSIS 16 (0-50); Potassium 5.3 mmol/L (3.4-5.1); Sodium 138 mmol/L (137-145)
[2019-05-01 13:15] LABS: TSH w/ Reflex to FT4 0.41 uIU/mL (0.47-4.68)
[2019-05-01 13:41] LABS: Free T4, Direct Thyroxine 1.27 ng/dL (0.78-2.19)
== END ==
PROVIDERS: Family Provider Internal Medicine; PCP Internal Medicine; Visit Provider Physician Assistant
DX: I42.8 Other cardiomyopathies (principal); E03.8 Other specified hypothyroidism
CPT/HCPCS: 36415; 80048; 84439; 84443

== ENCOUNTER 2019-08-09 21:15 | Emergency (ER) | payer MEDICARE, OTHER, SELFPAY ==
[2019-02-09 17:50] VITALS: BMI 30.9
[2019-08-09 21:29] VITALS: BP 133/93; PULSE 94; RESP 16; TEMP 36.8; O2SAT 97; BMI 28.3
--- NOTE | 2019-08-09 21:37 | ED.ALLEREA ---
HPI - Allergic Reaction General Chief complaint: Allergic Reaction Stated complaint: states drug reaction Time Seen by Provider: 08/09/19 21:17 Source: patient Mode of arrival: Ambulatory Limitations: no limitations History of Present Illness HPI narrative: 79-year-old male former smoker with cardiac history presents with his in the chief complaint of a red itchy rash on his back, bilateral flanks and abdomen which started over the course of the last day or so. He recently was at [facility] to have a pacemaker placed and was placed on doxycycline in the aftermath. He denies any trouble breathing but states he has a scratchy throat and thinks this may be related. He denies nausea, vomiting or diarrhea. He denies any swelling of lips, tongue. He has an extensive allergy history to many, if not most antibiotics. He is otherwise well and free of complaint. MD complaint: allergic reaction Onset (ago): hour(s) Exposure: medication Symptoms: rash and itching Severity: mild Treatment prior to arrival: none Previous Allergic Reaction History: prior ED visit(s) Related Data Home Medications Medication Instructions Recorded Confirmed B-complex with vitamin C [Super B 1 tab PO DAILY 02/09/19 02/09/19 Complex-Vitamin C] albuterol sulfate [Ventolin HFA] 2 puff INHALATION PRN PRN 02/09/19 02/09/19 aspirin 325 mg PO DAILY 02/09/19 02/09/19 carvedilol 1 tab PO BID 02/09/19 02/09/19 finasteride 1 tab PO DAILY 02/09/19 02/09/19 glucosamine-chondroitin 2 tab PO DAILY 02/09/19 02/09/19 levothyroxine 88 mcg PO DAILY 02/09/19 02/09/19 lisinopril-hydrochlorothiazide 1 tab PO DAILY 02/09/19 02/09/19 metformin 1 tab PO BID 02/09/19 02/09/19 pravastatin 1 tab PO DAILY 02/09/19 02/09/19 tamsulosin 0.4 mg PO QAM 02/09/19 02/09/19 Previous Rx's Medication Instructions Recorded bumetanide 2 mg PO DAILY #30 tab 02/11/19 prednisone 20 mg PO DAILY #5 tab 08/09/19 Allergies Allergy/AdvReac Type Severity Reaction Status Date / Time cephalexin [From Keflex] Allergy Verified 08/09/19 22:43 codeine Allergy Verified 08/09/19 22:43 doxycycline Allergy Rash Verified 08/09/19 22:43 Penicillins Allergy Verified 08/09/19 22:43 Sulfa (Sulfonamide Allergy Verified 08/09/19 22:43 Antibiotics) Review of Systems Constitutional Constitutional: Denies chills, Denies fatigue, Denies fever(s), Denies frequent falls, Denies lethargy and Denies weakness Eyes Eyes: Denies change in vision, Denies eye discharge, Denies irritation and Denies loss of vision ENT Ears, Nose, Mouth, and Throat: Denies change in voice, Denies dizziness, Denies neck pain, Denies sore throat and Denies throat swelling Cardiovascular Cardiovascular: Denies chest pain, Denies irregular heart rhythm, Denies lightheadedness, Denies palpitations, Denies dyspnea, Denies dyspnea on exertion and Denies orthopnea Respiratory Respiratory: Denies cough, Denies dyspnea, Denies dyspnea on exertion and Denies wheezing Gastrointestinal Gastrointestinal: Denies abdominal pain, Denies change in bowel habits, Denies diarrhea, Denies nausea and Denies vomiting Genitourinary Genitourinary: Denies hematuria, Denies flank pain, Denies urinary incontinence and Denies urinary urgency Musculoskeletal Musculoskeletal: Denies back pain, Denies muscle weakness, Denies neck pain, Denies numbness and Denies tingling Integumentary/Breasts Skin/Breast: Denies pruritus, Denies erythema, Reports rash and Denies wounds Neurologic Neurologic: Denies behavioral changes, Denies confusion, Denies dizziness, Denies frequent falls, Denies loss of vision, Denies numbness, Denies tingling and Denies weakness Psychiatric Psychiatric: Denies anxiety, Denies behavioral changes, Denies confusion, Denies depression, Denies homicidal ideation and Denies suicidal ideation Endocrine Endocrine: Denies fatigue, Denies flushing and Denies palpitations Hematologic/Lymphatic Hematologic/Lymphatic: Denies easy bruising Allergic/Immunologic Allergic/Immunologic: Denies urticaria, Denies throat swelling and Denies wheezing Patient History Medical History Anxiety (Acute) Arthritis of both knees (Acute) Benign prostate hyperplasia (Acute) Bilateral hip joint arthritis (Acute) Diabetes mellitus (Acute) HTN (hypertension) (Acute) Hypothyroidism (Acute) Lipidemia (Acute) Surgical History H/O colectomy (Acute) Hx of hand surgery (Acute) Social History household members: spouse Smoking Status: Former smoker alcohol intake: current alcohol intake frequency: 0-2 drinks per day Substance Use Type: does not use Exam Narrative Exam Narrative: GENERAL: [79] year old patient appears stated age. Well-nourished, well-developed patient, in mild distress. HEAD: Atraumatic. Normocephalic. EYES: Pupils equal round and reactive. Extraocular motions intact. No scleral icterus. No injection or drainage. ENT: No tongue, lip or throat swelling. Nose without bleeding, purulent drainage. Throat without erythema, tonsillar hypertrophy or exudate. Airway patent. NECK: Trachea midline. Non tender CARDIOVASCULAR: Regular rate and rhythm without murmurs, gallops, or rubs. RESPIRATORY: Clear to auscultation. Breath sounds equal bilaterally. No wheezes, rales, or rhonchi. GASTROINTESTINAL: Abdomen soft, non-tender, nondistended. EXTREMITIES: No edema or joint tenderness. BACK: Nontender without deformity or crepitance. No flank tenderness. NEURO: AOx3. SKIN: Maculopapular rash most noted on flank, blanching, no hives Initial Vital Signs Initial Vital Signs: Vital Signs Temperature 98.3 F 08/09/19 21:29 Pulse Rate 94 H 08/09/19 21:29 Respiratory Rate 16 08/09/19 21:29 Blood Pressure 133/93 H 08/09/19 21:29 Pulse Oximetry 97 08/09/19 21:29 Course Orders Ordered: Discontinued Medications Diphenhydramine HCl (Benadryl) 25 mg IV NOW ONE Stop: 08/09/19 21:32 Last Admin: 08/09/19 22:02 Dose: 25 mg Documented by: FILI Famotidine (Pepcid) 20 mg in 50 mls @ 200 mls/hr IV NOW ONE Stop: 08/09/19 21:45 Last Infusion: 08/09/19 22:42 Dose: 0 mls/hr Documented by: Admin: 08/09/19 22:03 Dose: 200 mls/hr Documented by: FILI Methylprednisolone (Solu-Medrol 125 Mg Vial) 125 mg IV NOW ONE Stop: 08/09/19 21:32 Last Admin: 08/09/19 22:03 Dose: 125 mg Documented by: FILI Reevaluation(s) Reevaluation #1: Some improvement after the above-stated therapies Consultations Consultation #1: Cardiology at [facility] to discuss the need for antibiotic coverage, incision is clean, dry and intact. They state we can stop the antibiotics Vital Signs Vital signs: Vital Signs - 8 hr 08/09/19 21:29 08/09/19 23:05 08/09/19 23:50 Temperature 98.3 F Pulse Rate 94 H 72 79 Respiratory Rate 16 13 16 Blood Pressure 133/93 H 130/74 Blood Pressure [Right Arm] 132/81 Pulse Oximetry 97 97 Discharge Plan Departure Patient Disposition: Home Clinical Impression: Allergic reaction Qualifiers: Encounter type: initial encounter Qualified Code(s): T78.40XA - Allergy, unspecified, initial encounter Discharge Date/Time: 08/09/19 23:51 Instructions: DI for Adverse Drug Reaction -- Allergic Activity Restrictions/Additional Instructions: *You have been diagnosed with [allergic reaction] *What to do: *Take medications as directed *Follow up with your primary care provider in 2-3 days, call for an appointment. Let them know you were seen in the Emergency Department and that we ask that you be seen in follow up *Return to ER if you should have any new, worsening or concerning symptoms Prescriptions: New prednisone 20 mg tablet 20 mg PO DAILY Qty: 5 RF: 0 No Action metformin 500 mg Tablet 1 tab PO BID RF: 0 carvedilol 25 mg tablet 1 tab PO BID RF: 0 lisinopril-hydrochlorothiazide 20-12.5 mg Tablet 1 tab PO DAILY RF: 0 aspirin 325 mg Tablet 325 mg PO DAILY RF: 0 pravastatin 40 mg tablet 1 tab PO DAILY RF: 0 albuterol sulfate [Ventolin HFA] 90 mcg/actuation Hfa Aerosol Inhaler 2 puff Inhalation PRN PRN (Reason: sob) RF: 0 finasteride 5 mg tablet 1 tab PO DAILY RF: 0 B-complex with vitamin C [Super B Complex-Vitamin C] Tablet 1 tab PO DAILY RF: 0 glucosamine-chondroitin 750-600 mg Tablet 2 tab PO DAILY RF: 0 levothyroxine 88 mcg Capsule 88 mcg PO DAILY RF: 0 tamsulosin 0.4 mg Capsule 0.4 mg PO QAM RF: 0 bumetanide 1 mg Tablet 2 mg PO DAILY Qty: 30 RF: 0 Referrals: Yosef Mix MD [Primary Care Provider] -
[2019-08-09] MEDS: diphenhydrAMINE 50 MG/ML VIAL 25 MG IV (22:02)
[2019-08-09] MEDS: FAMOTIDINE 20 MG/50 ML PIGGYBACK 200 MG IV (22:03)
[2019-08-09] MEDS: methylPREDNISolone 125 MG/2 ML VIAL IV (22:03)
[2019-08-09 23:05] VITALS: BP 132/81; PULSE 72; RESP 13
--- NOTE | 2019-08-09 23:06 | PC.NURSE ---
states less itchy, feels a little better. alert. family at side
[2019-08-09 23:50] VITALS: BP 130/74; PULSE 79; RESP 16; O2SAT 97
== END 2019-08-09 23:51 | disposition home or self-care (01) ==
PROVIDERS: Emergency Provider Emergency Medicine; Family Provider Internal Medicine; PCP Internal Medicine
DX: T78.40XA Allergy, unspecified, initial encounter (principal)
CPT/HCPCS: 36415; 96365; 96375; 99283; 99284; J1200; J2930

== ENCOUNTER 2019-08-10 19:15 | Emergency (ER) | payer MEDICARE, OTHER, SELFPAY ==
[2019-02-09 17:50] VITALS: BMI 30.9
[2019-08-10 19:15] VITALS: BP 139/87; PULSE 95; RESP 14; TEMP 36.6; O2SAT 99
[2019-08-10] MEDS: diphenhydrAMINE 25 MG TABLET PO (19:45)
--- NOTE | 2019-08-10 19:52 | ED_ITS ---
HPI - Allergic Reaction General Chief complaint: Allergic Reaction Stated complaint: allergic reaction to Prednesone Time Seen by Provider: 08/10/19 19:15 Source: patient Mode of arrival: Ambulatory Limitations: no limitations History of Present Illness HPI narrative: 79-year-old male former smoker returns with his for evaluation of an allergic reaction, likely to an antibiotic he was prescribed in the aftermath of a recent cardiac surgery for placement of a pacer. Yesterday he was seen and evaluated for a red itchy rash on his back and flanks and the complaint of some scratching in his throat. He was given an IV along with Benadryl, Pepcid and Solu-Medrol. He responded well though still had some itching as his last doxycycline was taken earlier in the day. He was given a prescription for prednisone and encouraged to continue to take Benadryl and any of the various [id number] H2 blockers. The we discussed it I had for gotten to type that on his discharge paperwork and he has not been taking the [id number] antihistamines (H1 or H2). He returns for re-evaluation and is better on the whole. He has no complaint of trouble with breathing or swallowing. His voice has improved any denies any swelling of tongue, lip or throat. He denies any hives just a faint, fine erythematous rash MD complaint: allergic reaction Onset (ago): day(s) Exposure: medication Symptoms: rash and itching Severity: mild Treatment prior to arrival: benadryl and steroids Previous Allergic Reaction History: prior ED visit(s) Related Data Home Medications Medication Instructions Recorded Confirmed B-complex with vitamin C [Super B 1 tab PO DAILY 02/09/19 02/09/19 Complex-Vitamin C] albuterol sulfate [Ventolin HFA] 2 puff INHALATION PRN PRN 02/09/19 02/09/19 aspirin 325 mg PO DAILY 02/09/19 02/09/19 carvedilol 1 tab PO BID 02/09/19 02/09/19 finasteride 1 tab PO DAILY 02/09/19 02/09/19 glucosamine-chondroitin 2 tab PO DAILY 02/09/19 02/09/19 levothyroxine 88 mcg PO DAILY 02/09/19 02/09/19 lisinopril-hydrochlorothiazide 1 tab PO DAILY 02/09/19 02/09/19 metformin 1 tab PO BID 02/09/19 02/09/19 pravastatin 1 tab PO DAILY 02/09/19 02/09/19 tamsulosin 0.4 mg PO QAM 02/09/19 02/09/19 Previous Rx's Medication Instructions Recorded bumetanide 2 mg PO DAILY #30 tab 02/11/19 prednisone 20 mg PO DAILY #5 tab 08/09/19 Allergies Allergy/AdvReac Type Severity Reaction Status Date / Time cephalexin [From Keflex] Allergy Verified 08/09/19 22:43 codeine Allergy Verified 08/09/19 22:43 doxycycline Allergy Rash Verified 08/09/19 22:43 Penicillins Allergy Verified 08/09/19 22:43 Sulfa (Sulfonamide Allergy Verified 08/09/19 22:43 Antibiotics) Review of Systems Constitutional Constitutional: Denies chills, Denies fatigue, Denies fever(s), Denies frequent falls, Denies lethargy and Denies weakness Eyes Eyes: Denies change in vision, Denies eye discharge, Denies irritation and Denies loss of vision ENT Ears, Nose, Mouth, and Throat: Denies change in voice, Denies dizziness, Denies neck pain, Denies sore throat and Denies throat swelling Cardiovascular Cardiovascular: Denies chest pain, Denies irregular heart rhythm, Denies lightheadedness, Denies palpitations, Denies dyspnea, Denies dyspnea on exertion and Denies orthopnea Respiratory Respiratory: Denies cough, Denies dyspnea, Denies dyspnea on exertion and Denies wheezing Gastrointestinal Gastrointestinal: Denies abdominal pain, Denies change in bowel habits, Denies diarrhea, Denies nausea and Denies vomiting Genitourinary Genitourinary: Denies hematuria, Denies flank pain, Denies urinary incontinence and Denies urinary urgency Musculoskeletal Musculoskeletal: Denies back pain, Denies muscle weakness, Denies neck pain, Denies numbness and Denies tingling Integumentary/Breasts Skin/Breast: Denies pruritus, Reports erythema, Reports rash and Denies wounds Neurologic Neurologic: Denies behavioral changes, Denies confusion, Denies dizziness, Denies frequent falls, Denies loss of vision, Denies numbness, Denies tingling and Denies weakness Psychiatric Psychiatric: Denies anxiety, Denies behavioral changes, Denies confusion, Denies depression, Denies homicidal ideation and Denies suicidal ideation Endocrine Endocrine: Denies fatigue, Denies flushing and Denies palpitations Hematologic/Lymphatic Hematologic/Lymphatic: Denies easy bruising Allergic/Immunologic Allergic/Immunologic: Denies urticaria, Denies throat swelling and Denies wheezing Patient History Medical History Anxiety (Acute) Arthritis of both knees (Acute) Benign prostate hyperplasia (Acute) Bilateral hip joint arthritis (Acute) Diabetes mellitus (Acute) HTN (hypertension) (Acute) Hypothyroidism (Acute) Lipidemia (Acute) Surgical History H/O colectomy (Acute) Hx of hand surgery (Acute) Social History household members: spouse Smoking Status: Former smoker alcohol intake: current alcohol intake frequency: 0-2 drinks per day Substance Use Type: does not use Exam Narrative Exam Narrative: GENERAL: [79] year old patient appears stated age. Well- nourished, well-developed patient, in mild distress. HEAD: Atraumatic. Normocephalic. EYES: Pupils equal round and reactive. Extraocular motions intact. No scleral icterus. No injection or drainage. ENT: No tongue, lip or throat swelling Nose without bleeding, purulent drainage. Throat without erythema, tonsillar hypertrophy or exudate. Airway patent. NECK: Trachea midline. Non tender CARDIOVASCULAR: Regular rate and rhythm without murmurs, gallops, or rubs. RESPIRATORY: Clear to auscultation. Breath sounds equal bilaterally. No wheezes, rales, or rhonchi. GASTROINTESTINAL: Abdomen soft, non-tender, nondistended. EXTREMITIES: No edema or joint tenderness. BACK: Nontender without deformity or crepitance. No flank tenderness. NEURO: AOx3. SKIN: Faint pruritic erythematous rash on flanks and abdomen, blanching. No urticaria Initial Vital Signs Initial Vital Signs: Vital Signs Temperature 97.8 F 08/10/19 19:15 Pulse Rate 95 H 08/10/19 19:15 Respiratory Rate 14 08/10/19 19:15 Blood Pressure 139/87 08/10/19 19:15 Pulse Oximetry 99 08/10/19 19:15 Course Orders Ordered: Discontinued Medications Diphenhydramine HCl (Benadryl) 25 mg PO NOW ONE Stop: 08/10/19 19:27 Last Admin: 08/10/19 19:45 Dose: 25 mg Documented by: KATIA Ranitidine HCl (Zantac) 300 mg PO NOW ONE Stop: 08/10/19 19:27 Last Admin: 08/10/19 19:44 Dose: 300 mg Documented by: KATIA Vital Signs Vital signs: Vital Signs - 8 hr 08/10/19 19:15 Temperature 97.8 F Pulse Rate 95 H Respiratory Rate 14 Blood Pressure 139/87 Pulse Oximetry 99 Discharge Plan Departure Patient Disposition: Home Clinical Impression: Allergic reaction Qualifiers: Encounter type: initial encounter Qualified Code(s): T78.40XA - Allergy, unspecified, initial encounter Instructions: DI for Adverse Drug Reaction -- Allergic Activity Restrictions/Additional Instructions: *You have been diagnosed with [ allergic reaction ] *What to do: *Take medications as directed: Benadryl and Pepcid [id number], as described on the packaging. *Follow up with your primary care provider in 2-3 days, call for an appointment. Let them know you were seen in the Emergency Department and that we ask that you be seen in follow up *Return to ER if you should have any new, worsening or concerning symptoms Prescriptions: No Action metformin 500 mg Tablet 1 tab PO BID RF: 0 carvedilol 25 mg tablet 1 tab PO BID RF: 0 lisinopril-hydrochlorothiazide 20-12.5 mg Tablet 1 tab PO DAILY RF: 0 aspirin 325 mg Tablet 325 mg PO DAILY RF: 0 pravastatin 40 mg tablet 1 tab PO DAILY RF: 0 albuterol sulfate [Ventolin HFA] 90 mcg/actuation Hfa Aerosol Inhaler 2 puff Inhalation PRN PRN (Reason: sob) RF: 0 finasteride 5 mg tablet 1 tab PO DAILY RF: 0 B-complex with vitamin C [Super B Complex-Vitamin C] Tablet 1 tab PO DAILY RF: 0 glucosamine-chondroitin 750-600 mg Tablet 2 tab PO DAILY RF: 0 levothyroxine 88 mcg Capsule 88 mcg PO DAILY RF: 0 tamsulosin 0.4 mg Capsule 0.4 mg PO QAM RF: 0 bumetanide 1 mg Tablet 2 mg PO DAILY Qty: 30 RF: 0 prednisone 20 mg tablet 20 mg PO DAILY Qty: 5 RF: 0 Referrals: Yosef Mix MD [Primary Care Provider] -
[2019-08-10 20:06] VITALS: BP 138/69; PULSE 94; RESP 18; O2SAT 99
[2019-08-10 20:28] VITALS: BP 138/69; PULSE 94; RESP 18; O2SAT 99
== END 2019-08-10 20:30 | disposition home or self-care (01) ==
PROVIDERS: Emergency Provider Emergency Medicine; Family Provider Internal Medicine; PCP Internal Medicine
DX: T78.40XA Allergy, unspecified, initial encounter (principal)
CPT/HCPCS: 99282; 99283

== ENCOUNTER → 2021-02-28 18:48 | Outpatient (ROUT) | payer MEDICARE, OTHER, SELFPAY ==
[2019-02-09 17:50] VITALS: BMI 30.9
[2021-02-28 19:50] LABS: Add Manual Diff / Slide Review NO; Basophils Absolute Auto 100 /uL (0-100); Basophils Percent Auto 0.7 % (0-2); Eosinophils Absolute Auto 300 /uL (0-450); Hematocrit 38.3 % (41-53); Hemoglobin 12.9 g/dL (13.5-17.5); Lymphocytes Absolute Auto 1900 /uL (1100-4500); Lymphocytes Percent Auto 25.6 % (25-40); Mean Corpuscular HGB Conc 33.7 % (30-36); Mean Corpuscular Hemoglobin 31.8 PG (26-34); Mean Corpuscular Volume 94.3 fL (80-100); Monocytes Absolute Auto 700 /uL (0-900); Monocytes Percent Auto 9.2 % (3-14); Neutrophils Absolute Auto 4500 /uL (1500-7000); Neutrophils Percent Auto 60.5 % (50-75); Platelet Count 183 X10^3/uL (150-400); Red Blood Cell Count 4.06 X10^6/uL (4.5-5.9); Red Cell Distribution Width 13.2 % (11.6-14.8); White Blood Cell Count 7.4 X10^3/uL (4.5-11.0)
[2021-02-28 20:03] LABS: C-Reactive Protein Quant < 0.5 mg/dL (<1.0)
[2021-02-28 20:14] LABS: Erythrocyte Sedimentation Rate 6 MM/HR (0-15)
== END ==
PROVIDERS: Family Provider Internal Medicine; PCP Internal Medicine; Visit Provider Internal Medicine
DX: M31.6 Other giant cell arteritis (principal)
CPT/HCPCS: 85025; 85651; 86140

== ENCOUNTER 2021-03-01 00:29 | Emergency (ER) | payer MEDICARE, OTHER, SELFPAY ==
[2019-02-09 17:50] VITALS: BMI 30.9
--- NOTE | 2021-03-01 00:36 | ED.GENADULT ---
HPI - General Adult General Chief complaint: Arrhythmia/Palpitations Stated complaint: Poss upper resp obstruction Time Seen by Provider: 03/01/21 00:29 Source: patient and EMS Mode of arrival: EMS Limitations: no limitations History of Present Illness HPI narrative: Patient is an 80-year-old male with a known history of heart failure. He also has a pacemaker in place. He states that this evening he was sitting on the couch watching the evening news when he felt like he needed to yawn. Because he recently had some dental procedures done he has been having spasms of the left side of his jaw which has caused him to not be able to open his mouth fully. When he was trying to yawn he was trying not open his mouth because he did not want the spasm to happen in because of this he started to panic somewhat and then have some problems breathing. He denied any chest pain. He states that the symptoms for like he could not synchronized his breathing. He then contacted 911 because he was having these issues. Since that time he has had multiple episodes of belching which seems to have improved his symptoms somewhat. At the time my exam he stated that he had a ?sour stomach? although no longer has chest pain or shortness of breath. Related Data Home Medications Medication Instructions Recorded Confirmed B-complex with vitamin C [Super B 1 tab PO DAILY 02/09/19 02/09/19 Complex-Vitamin C] albuterol sulfate [Ventolin HFA] 2 puff INHALATION PRN PRN 02/09/19 02/09/19 aspirin 325 mg PO DAILY 02/09/19 02/09/19 carvedilol 1 tab PO BID 02/09/19 02/09/19 finasteride 1 tab PO DAILY 02/09/19 02/09/19 glucosamine-chondroitin 2 tab PO DAILY 02/09/19 02/09/19 levothyroxine 88 mcg PO DAILY 02/09/19 02/09/19 lisinopril-hydrochlorothiazide 1 tab PO DAILY 02/09/19 02/09/19 metformin 1 tab PO BID 02/09/19 02/09/19 pravastatin 1 tab PO DAILY 02/09/19 02/09/19 tamsulosin 0.4 mg PO QAM 02/09/19 02/09/19 Previous Rx's Medication Instructions Recorded bumetanide 2 mg PO DAILY #30 tab 02/11/19 prednisone 20 mg PO DAILY #5 tab 08/09/19 Allergies Allergy/AdvReac Type Severity Reaction Status Date / Time cephalexin [From Keflex] Allergy Verified 08/09/19 22:43 codeine Allergy Verified 08/09/19 22:43 doxycycline Allergy Rash Verified 08/09/19 22:43 Penicillins Allergy Verified 08/09/19 22:43 Sulfa (Sulfonamide Allergy Verified 08/09/19 22:43 Antibiotics) Review of Systems Constitutional Constitutional: Denies fever(s) Cardiovascular Cardiovascular: Denies chest pain Respiratory Comments: Problems with synchronize in his breathing Gastrointestinal Comments: Sour stomach/belching Musculoskeletal Musculoskeletal: Reports system reviewed and no additional complaints, except as documented Integumentary/Breasts Skin/Breast: Denies rash Neurologic Neurologic: Reports system reviewed and no additional complaints, except as documented Psychiatric Psychiatric: Reports anxiety Endocrine Endocrine: Reports system reviewed and no additional complaints, except as documented Hematologic/Lymphatic On Anticoagulants: Yes Allergic/Immunologic Allergic/Immunologic: Reports system reviewed and no additional complaints, except as documented Patient History Medical History Anxiety Arthritis of both knees Benign prostate hyperplasia Bilateral hip joint arthritis Diabetes mellitus HTN (hypertension) Hypothyroidism Lipidemia Surgical History H/O colectomy Hx of hand surgery Social History household members: spouse Smoking Status: Former smoker alcohol intake: current Smoking Status: Former smoker alcohol intake frequency: 0-2 drinks per day Substance Use Type: does not use Exam Initial Vital Signs Initial Vital Signs: Vital Signs Temperature 98.2 F 03/01/21 00:37 Pulse Rate 83 03/01/21 00:37 Respiratory Rate 17 03/01/21 00:37 Blood Pressure 119/73 03/01/21 00:37 Pulse Oximetry 98 03/01/21 00:37 Const General: cooperative and healthy appearing Limitations: mental status not altered HENMT Head: normal to inspection and normocephalic Resp Effort & Inspection: normal respiratory effort Auscultation: clear to auscultation bilaterally Cardio Rate: regular rate Rhythm: regular rhythm GI Inspection: non-distended Skin Lesions: no lesions Rashes: no rashes Neuro General: patient alert, patient awake and moves all extremities Extrem General: No edema Psych Appearance: grossly normal and well kempt Course Orders Ordered: ED Orders 03/01/21 00:37 XR chest 1V Stat EKG-12 Lead Stat 03/01/21 00:40 Complete Blood Count AUTO DIFF Stat Comprehensive Metabolic Panel Stat NT-proBNP (BNP-Adult 18+) Stat Troponin & CK Cardiac Panel Stat Vital Signs Vital signs: Vital Signs - 8 hr 03/01/21 00:37 Temperature 98.2 F Pulse Rate 83 Respiratory Rate 17 Blood Pressure 119/73 Pulse Oximetry 98 Medical Decision Making Lab Data Lab results reviewed: Yes I reviewed the patient's lab results. Result diagrams: 03/01/21 00:40 03/01/21 00:40 Labs: Lab Results 03/01/21 03/01/21 Range/Units 00:40 00:40 WBC 8.1 (4.5-11.0) X10^3/uL RBC 3.84 L (4.5-5.9) X10^6/uL Hgb 12.1 L (13.5-17.5) g/dL Hct 36.0 L (41-53) % MCV 93.8 (80-100) fL MCH 31.6 (26-34) PG MCHC 33.7 (30-36) % RDW 13.6 (11.6-14.8) % Plt Count 162 (150-400) X10^3/uL Neut % (Auto) 61.8 (50-75) % Lymph % (Auto) 24.4 L (25-40) % Jessamine % (Auto) 10.3 (3-14) % Eos % (Auto) 3.2 (2-4) % Baso % (Auto) 0.3 (0-2) % Neut # (Auto) 5000 (2643-3101) /uL Lymph # (Auto) 2000 (4420-5376) /uL Jessamine # (Auto) 800 (0-900) /uL Eos # (Auto) 300 (0-450) /uL Baso # (Auto) 0 (0-100) /uL Sodium 135 L (137-145) mmol/L Potassium 5.0 (3.4-5.1) mmol/L Chloride 106 (98-107) mmol/L Carbon Dioxide 21 L (22-32) mmol/L BUN 31 H (9-20) mg/dL Creatinine 1.37 H (0.66-1.25) mg/dL Estimated GFR 49.9 L (>60) mL/min BUN/Creatinine Ratio 22.6 H (6-22) Glucose 166 H (80-110) mg/dL Calcium 9.1 (8.4-10.2) mg/dL Total Bilirubin 0.3 (0.2-1.3) mg/dL AST 21 (17-59) IU/L ALT 15 (<50) IU/L Alkaline Phosphatase 101 (38-126) U/L Total Creatine Kinase 47 L (55-170) U/L CK-MB (CK-2) TNP CK-MB (CK-2) Rel Index TNP Troponin I < 0.012 (0.01-0.034) ng/mL NT-Pro-B Natriuret Pep 2490 H (<450) pg/mL Total Protein 6.6 (6.3-8.2) g/dL Albumin 3.9 (3.5-5.0) g/dL Globulin 2.7 (1.7-4.1) g/dL Albumin/Globulin Ratio 1.4 (1.0-2.8) Imaging Data Chest x-ray: Radiologist's Impression: No acute disease in the chest ECG Data Attestation: I personally reviewed and interpreted this ECG as follows: Prior ECG tracings: not available for review Interpretation: Sinus rhythm First degree AV block peer interval 2-4 milliseconds Frequent PVCs Left axis deviation Right bundle branch block Normal QTC MDM Narrative Medical decision making narrative: I do suspect that his symptoms were GI related. He appears to have improved after belching multiple times since the onset of the symptoms. This very well could have been exacerbated by the fact that he was trying to yawn but could not because the issues he is having with his jaw. Low suspicion for ACS. Low suspicion for acute heart failure exacerbation. His chest x-ray is unremarkable. Labs are reassuring. Patient is safe for discharge home we did discuss return precautions and follow-up instructions. He expressed understanding and agreement. Discharge Plan Departure Patient Disposition: Home Clinical Impression: Respiratory abnormality Activity Restrictions/Additional Instructions: Continue all of your medications as directed. Contact your primary provider for a follow-up. Return to the emergency department for any new or worsening symptoms Prescriptions: No Action metformin 500 mg Tablet 1 tab PO BID RF: 0 carvedilol 25 mg tablet 1 tab PO BID RF: 0 lisinopril-hydrochlorothiazide 20-12.5 mg Tablet 1 tab PO DAILY RF: 0 aspirin 325 mg Tablet 325 mg PO DAILY RF: 0 pravastatin 40 mg tablet 1 tab PO DAILY RF: 0 albuterol sulfate [Ventolin HFA] 90 mcg/actuation Hfa Aerosol Inhaler 2 puff Inhalation PRN PRN (Reason: sob) RF: 0 finasteride 5 mg tablet 1 tab PO DAILY RF: 0 B-complex with vitamin C [Super B Complex-Vitamin C] Tablet 1 tab PO DAILY RF: 0 glucosamine-chondroitin 750-600 mg Tablet 2 tab PO DAILY RF: 0 levothyroxine 88 mcg Capsule 88 mcg PO DAILY RF: 0 tamsulosin 0.4 mg Capsule 0.4 mg PO QAM RF: 0 bumetanide 1 mg Tablet 2 mg PO DAILY Qty: 30 RF: 0 prednisone 20 mg tablet 20 mg PO DAILY Qty: 5 RF: 0 Referrals: Yosef Mix MD [Primary Care Provider] -
[2021-03-01 00:37] VITALS: BP 119/73; PULSE 83; RESP 17; TEMP 36.8; O2SAT 98; BMI 28.3
--- NOTE | 2021-03-01 00:37 | DI.RAD.S_ITS ---
PROCEDURE: XR CHEST 1V INDICATIONS: Shortness of breath TECHNIQUE: One view of the chest was acquired. COMPARISON: [facility], CR, XR CHEST 1 VIEW, 09/10/2019, 13:53. [facility], CR, XR CHEST 1V, 02/22/2019, 21:47. FINDINGS: Surgical changes and devices: There is a cardiac pacemaker in appropriate position. Lungs and pleura: Lungs are clear. No pleural effusions or pneumothorax. Mediastinum: Mediastinal contours appear normal. Heart size is normal. Bones and chest wall: No suspicious bony lesions. Overlying soft tissues appear unremarkable. IMPRESSION: No acute cardiopulmonary disease. No significant discrepancy with the early childhood worker radiology preliminary report. Dictated by: Samina Chavarria M.D. on 03/01/2021 at 8:59 Approved by: Samina Chavarria M.D. on 03/01/2021 at 8:59
[2021-03-01 00:54] LABS: Add Manual Diff / Slide Review NO; Basophils Absolute Auto 0 /uL (0-100); Basophils Percent Auto 0.3 % (0-2); Eosinophils Absolute Auto 300 /uL (0-450); Eosinophils Percent Auto 3.2 % (2-4); Hemoglobin 12.1 g/dL (13.5-17.5); Lymphocytes Absolute Auto 2000 /uL (1100-4500); Lymphocytes Percent Auto 24.4 % (25-40); Mean Corpuscular HGB Conc 33.7 % (30-36); Mean Corpuscular Hemoglobin 31.6 PG (26-34); Mean Corpuscular Volume 93.8 fL (80-100); Monocytes Absolute Auto 800 /uL (0-900); Monocytes Percent Auto 10.3 % (3-14); Neutrophils Absolute Auto 5000 /uL (1500-7000); Neutrophils Percent Auto 61.8 % (50-75); Platelet Count 162 X10^3/uL (150-400); Red Blood Cell Count 3.84 X10^6/uL (4.5-5.9); Red Cell Distribution Width 13.6 % (11.6-14.8); White Blood Cell Count 8.1 X10^3/uL (4.5-11.0)
[2021-03-01 00:58] LABS: Alanine Aminotransferase 15 IU/L (<50); Albumin 3.9 g/dL (3.5-5.0); Albumin Globulin Ratio 1.4 (1.0-2.8); Alkaline Phosphatase 101 U/L (38-126); Aspartate Aminotransferase 21 IU/L (17-59); BUN Creatinine Ratio 22.6 (6-22); Bilirubin Total 0.3 mg/dL (0.2-1.3); Blood Urea Nitrogen 31 mg/dL (9-20); Calcium 9.1 mg/dL (8.4-10.2); Carbon Dioxide 21 mmol/L (22-32); Chloride 106 mmol/L (98-107); Creatine Kinase 47 U/L (55-170); Estimated Glomerular Filt Rate 49.9 mL/min (>60); Globulin 2.7 g/dL (1.7-4.1); Glucose 166 mg/dL (80-110); HEMOLYSIS < 15 (0-50); Sodium 135 mmol/L (137-145); Total Protein 6.6 g/dL (6.3-8.2)
[2021-03-01 01:10] LABS: NT-proBNP (BNP-Adult 18+) 2490 pg/mL (<450); Troponin I < 0.012 ng/mL (0.01-0.034)
[2021-03-01 01:46] VITALS: BP 129/75; PULSE 80; RESP 18; O2SAT 100
== END 2021-03-01 01:46 | disposition home or self-care (01) ==
LOC: ED 01:51
PROVIDERS: Emergency Provider Emergency Medicine; Family Provider Internal Medicine; PCP Internal Medicine
DX: R06.9 Unspecified abnormalities of breathing (principal)
CPT/HCPCS: 71045; 80053; 82550; 83880; 84484; 85025; 93005; 93010; 99283; 99284